=== PATIENT | male | born 1930 | race Caucasian/White ===

== ENCOUNTER → 2018-03-21 | Outpatient (CLI) | payer MEDICARE ==
--- NOTE | 2018-03-21 17:17 | Diagnostic Imaging Report ---
PROCEDURE: Frontal and lateral views of the chest. COMPARISON: Patients [facility], DX, CHEST 2 VIEWS - [facility]MI[facility], 01/05/2016, 12:18. INDICATIONS: CHEST PRESSURE FOR A WEEK FINDINGS: Lines/tubes: None. Lungs: The lungs are well inflated. Minimal bibasilar atelectatic changes, left greater than right.. There is no evidence of consolidation or overt pulmonary edema. Pleura: Small left pleural effusion. Heart and mediastinum: Enlarged cardiac silhouette, with mild central pulmonary venous congestion. Atherosclerotic calcification of the aorta. Bones: No acute bony abnormality. Degenerative changes in the thoracic spine. Midline sternotomy wires. IMPRESSION: 1. enlarged cardiac silhouette with mild central pulmonary venous congestion and small left pleural effusion. No consolidation. Rd Robles M.D. Dictated by: Rd Robles M.D. on 03/21/2018 at 17:22 Electronically approved by: Rd Robles M.D. on 03/21/2018 at 17:22
== END ==
LOC: RAD 15:54
PROVIDERS: ATTEND Family Medicine
DX: R05 Cough (principal)
CPT/HCPCS: 71046

== ENCOUNTER → 2018-10-03 | Outpatient (CLI) | payer MEDICARE ==
[~2018-10-03] MED LIST: ALLOPURINOL100 MG PO; ASPIRIN EC81 MG PO; ATORVASTATIN CA20 MG PO; COUMADIN3 MG PO; DOXYCYCLINE HY100 M3 PO; FINASTERIDE5 MG PO; FUROSEMIDE80 MG PO; LEVOTHYROXINE88 MCG PO; LOPRESSOR25 MG; LOPRESSOR25 MG PO; LYRICA50 MG; LYRICA50 MG PO; METOLAZONE2.5 MG PO; POTASSIUM CHLO10 ME1 PO; POTASSIUM CHLO20 ME1 PO; TAMSULOSIN HCL0.4 MG PO; TYLENOL EXTRA500 MG PO; ULTRAM 50MG50 MG PO; VIRTUSSIN PO; VITAMIN D31000 UNIT PO; WARFARIN SODIUM6 MG PO
--- NOTE | 2018-10-03 17:13 | Diagnostic Imaging Report ---
EXAMINATION: CHEST 2 VIEWS INDICATION: Cough. Shortness of breath. ^COUGH COMPARISON: None FINDINGS: TUBES and LINES: None. Sternal wires. LUNGS: Lungs are well inflated. Perihilar peribronchial hazy opacity could be due to bronchitis. There is no evidence of pneumonia or pulmonary edema. PLEURA: There may be small pleural effusions. HEART AND MEDIASTINUM: Cardiomegaly with pulmonary vascular congestion BONES AND SOFT TISSUES: No acute osseous lesion. Soft tissues are unremarkable. UPPER ABDOMEN: No free air under the diaphragm. IMPRESSION: Cardiomegaly with pulmonary vascular congestion. There may be small pleural effusions. Perihilar peribronchial hazy opacity could be due to bronchitis. Signed by: Dr. Leonard Motley M.D. on 10/03/2018 5:10 PM
== END ==
LOC: RAD 16:38
PROVIDERS: ATTEND Internal Medicine
DX: R05 Cough (principal)
CPT/HCPCS: 71046

== ENCOUNTER 2018-10-04 14:10 | Inpatient (IN) | payer MEDICARE ==
[~2018-10-04] VITALS: Ht 172.7 cm; Wt 109.9 kg
--- OUTSIDE RECORDS SUMMARY | 2018-10-04 14:13 | XMS REPORT ---
Author [facility] Address Unknown Phone Unavailable Care Team Providers Care Information Assurance Name Role Phone RONY DAVID Unavailable Unavailable HAMID, BASEM Unavailable Unavailable HENDRICKSON, ERIK Unavailable Unavailable Goen, Erik Unavailable Unavailable Problems This patient has no known problems. Allergies, Adverse Reactions, Alerts This patient has no known allergies or adverse reactions. Medications This patient has no known medications. Results Test Description Test Time Test Comments Text Results Atomic Results Result Comments CHEST 2 VIEWS 2018-10-03 17:08:00 [place] [address] Patient Name: NOEL VIDES MR #: [id number] : 1930 Age/Sex: 88/M Req #: [id number] Adm Physician: Ordered by: RONY DAVID MD Report #: [id number] Location: [facility] Room/Bed: Procedure: [id number] DX/CHEST 2 VIEWS Exam Date: Exam Time: REPORT STATUS: Signed EXAMINATION: CHEST 2 VIEWS INDICATION: Cough. Shortness of breath. COUGH COMPARISON: None FINDINGS: TUBES and LINES: None. Sternal wires. LUNGS: Lungs are well inflated. Perihilar peribronchial hazy opacity could be due to bronchitis. There is no evidence of pneumonia or pulmonary edema. PLEURA: There may be small pleural effusions. HEART AND MEDIASTINUM: Cardiomegaly with pulmonary vascular congestion BONES AND SOFT TISSUES: No acute osseous lesion. Soft tissues are unremarkable. UPPER ABDOMEN: No free air under the diaphragm. IMPRESSION: Cardiomegaly with pulmonary vascular congestion. There may be small pleural effusions. Perihilar peribronchial hazy opacity could be due to bronchitis. Signed by: Dr. Jose Guadalupe Motley M.D. on 10/03/2018 5:10 PM Dictated By: JOSE GUADALUPE MOTLEY MD, MD 09 Transcribed By: REGINE on 10/03/181709 COPY TO: RONY DAVID MD FOOT LEFT COMPLETE 2018-05-08 15:16:00 [place] [address] Patient Name: NOEL VIDES MR #: [id number] : 1930 Age/Sex: 87/M Req #: [id number] Adm Physician: Ordered by: EDDIE CHOPRA M.D. Report #: [id number] Location: [facility] Room/Bed: Procedure: [id number] DX/FOOT LEFT COMPLETE Exam Date: 05/07/18 Exam Time: 1010 REPORT STATUS: Signed PROCEDURE: X-RAY LEFT FOOT, COMPLETE COMPARISON: None. INDICATIONS: ANKLE/FOOT JOINT PAIN FINDINGS: No acute, displaced fracture or dislocation. Appropriate interval between the medial cuneiform and second metatarsal base in keeping with an intact Lisfranc ligament. Bones of the midfoot are suboptimally evaluated. Joint spaces are show scattered foci of narrowing in osteophytosis along the tarsometatarsal joints. Calcaneal spur. Atherosclerotic vascular calcifications. CONCLUSION: No acute osseous abnormalities. Scattered degenerative changes throughout the midfoot. Dictated by: Cyndi Herrera M.D. on 05/08/2018 at 15:16 Electronically approved by: Cyndi Herrera M.D. on 05/08/2018 at 15:16 Dictated By: CYNDI HERRERA MD 15 Transcribed By: LAW on 05/08/181515 COPY TO: EDDIE CHOPRA ANKLE 3+ VIEWS LEFT 2018-05-08 15:15:00 [place] [address] Patient Name: NOEL VIDES MR #: [id number] : 1930 Age/Sex: 87/M Req #: [id number] Adm Physician: Ordered by: EDDIE CHOPRA M.D. Report #: [id number] Location: [facility] Room/Bed: Procedure: [id number] DX/ANKLE 3+ VIEWS LEFT Exam Date: 05/07/18 Exam Time: 1010 REPORT STATUS: Signed PROCEDURE: ANKLE 3+ VIEWS LEFT INDICATION: Joint pain COMPARISON: None. FINDINGS: No acute, displaced fracture or dislocation. Tibial plafond and talar dome are intact. Ankle mortise is maintained. Atherosclerotic vascular calcifications. Degenerative plantar and posterior calcaneal spur. CONCLUSION: No acute osseous abnormality. Degenerative plantar and posterior calcaneal spur. Dictated by: Cyndi Herrera M.D. on 05/08/2018 at 15:14 Electronically approved by: Cyndi Herrera M.D. on 05/08/2018 at 15:14 Dictated By: CYNDI HERRERA MD 14 Transcribed By: LAW on 05/08/181514 COPY TO: EDDIE CHOPRA SP LUMBAR, COMPLETE MIN 4VW 2018-05-07 11:36:00 [place] [address] Patient Name: NOEL VIDES MR #: [id number] : 1930 Age/Sex: 87/M Req #: [id number] Adm Physician: Ordered by: EDDIE CHOPRA M.D. Report #: [id number] Location: [facility] Room/Bed: Procedure: [id number] DX/SP LUMBAR, COMPLETE MIN 4VW Exam Date: 05/07/18 Exam Time: 1010 REPORT STATUS: Signed PROCEDURE: L-SPINE COMPLETE COMPARISON: None. INDICATIONS: LOW BACK PAIN FINDINGS: There are five lumbar-type vertebral bodies. The vertebral bodies are well-aligned without evidence of spondylolisthesis. Vertebral body heights are maintained. Multilevel degenerative disc and facet degenerative changes, most pronounced at L4-L5 and L5-S1 where there are moderate in severity. There is likely bony neural foraminal stenoses at these levels. Atherosclerotic vascular calcifications. Partially seen right hip arthroplasty. CONCLUSION: No acute osseous abnormality. Moderate degenerative changes in the lower lumbar spine as above. Dictated by: RACHEAL LITTLEJOHN M.D. on 05/07/2018 at 11:35 Electronically approved by: RACHEAL LITTLEJOHN M.D. on 05/07/2018 at 11:35 Dictated By: RACHEAL LITTLEJOHN MD 1136 Transcribed By: LAW on 05/07/18 1136 COPY TO: EDDIE CHOPRA CHEST 2 VIEWS 2018-03-21 17:22:00 [place] [address] Patient Name: NOEL VIDES MR #: [id number] : 1930 Age/Sex: 87/M Req #: [id number] [facility] Physician: Ordered by: ERIK HENDRICKSON MD Report #: [id number] Location: [facility] Room/Bed: Procedure: [id number] DX/CHEST 2 VIEWS Exam Date: 03/21/18 Exam Time: 1630 REPORT STATUS: Signed PROCEDURE: Frontal and lateral views of the chest. COMPARISON: [facility], DX, CHEST 2 VIEWS - [facility]ORI[facility], 01/05/2016, 12:18. INDICATIONS: CHEST PRESSURE FOR A WEEK FINDINGS: Lines/tubes: None. Lungs: The lungs are well inflated. Minimal bibasilar atelectatic changes, left greater than right.. There is no evidence of consolidation or overt pulmonary edema. Pleura: Small left pleural effusion. Heart and mediastinum: Enlarged cardiac silhouette, with mild central pulmonary venous congestion. Atherosclerotic calcification of the aorta. Bones: No acute bony abnormality. Degenerative changes in the thoracic spine. Midline sternotomy wires. IMPRESSION: 1. enlarged cardiac silhouette with mild central pulmonary venous congestion and small left pleural effusion. No consolidation. Ehsan Robles M.D. Dictated by: Ehsan Robles M.D. on 03/21/2018 at 17:22 Electronically approved by: Ehsan Robles M.D. on 03/21/2018 at 17:22 Dictated By: EHSAN ROBLES MD 21 Transcribed By: LAW on 03/21/181721 COPY TO: ERIK HENDRICKSON MD Chemistry 2017-04-20 21:52:00 Chemistry (test code=NA-T) 140 mmol/L 136-145 Chemistry (test code=K-T) 4.0 mmol/L 3.5-5.1 Chemistry (test code=CL) 102 mmol/L 98-107 Chemistry (test code=CO2) 24 mmol/L 23-31 Chemistry (test code=ANGP) 18 mmol/L 10-20 Chemistry (test code=BUN) 16 mg/dL 8.4-25.7 Chemistry (test code=CREATT) 1.12 mg/dL 0.6-1.3 Chemistry (test code=EGFRMDRD) 62 Reference Range for Estimated GFR: Greater than 90 mL/min/1.73 m2NOTE:The MDRD equation has not been validated for use with theelderly (over 70 years of age), women, patien tswith serious comorbid condition or persons with extremes ofbody size, muscle mass, or nutritional status. Chemistry (test code=GLU-T) 174 mg/dL 83-110 Chemistry (test code=CA) 8.5 mg/dL 7.8-10.44 Chemistry (test code=TBILI) 1.7 mg/dL 0.2-1.2 Chemistry (test code=TP) 7.0 g/dL 5.8-8.1 Chemistry (test code=ALB) 3.5 g/dL 3.4-4.8 Chemistry (test code=GLOB) 3.5 g/dL 2.4-3.5 Chemistry (test code=AG) 1.0 g/dL 1.2-2.2 Chemistry (test code=ALP) 97 U/L 40-150 Chemistry (test code=AST) 30 U/L 5-34 Chemistry (test code=ALT) 17 U/L 8-55 [id number] 21:22:00* Test Item Value Reference Range Comments Coagulation (test code=PT-T) 17.0 SEC 12.0-14.7 Coagulation (test code=INR) 1.4 ATTENTION: READ CAREFULLY The recommended therapeutic ranges for oral anticoagulanttreatments are: Low Intensity: 1.5 - 2.0 Moderate Intensity: 2.0 - 3.0 High Intensity (1): 2.5 - 3.5 High Intensity (2): 3.0 - 4.0 CRITICAL: > 4.0 Anticoagulant? WARFARIN (COUMADIN)Medical Necessity SUSPECT COAGULOPATHYAnticoag ulant? WARFARIN (COUMADIN)Medical Necessity: SUSP [id number] 21:22:00* Test Item Value Reference Range Comments Coagulation (test code=PTT) 42.0 SEC 22.9-36.1 Anticoagulant? WARFARIN (COUMADIN)Medical Necessity SUSPECT COAGULOPATHYAnticoag ulant? WARFARIN (COUMADIN)Medical Necessity: SUSP [id number] 21:12:00* Test Item Value Reference Range Comments Hematology (test code=WBCT) 5.9 thou/uL 4.8-10.8 Hematology (test code=RBCT) 3.49 mill/uL 4.70-6.10 Hematology (test code=HGBT) 10.9 g/dL 14.0-18.0 Hematology (test code=HCTT) 34.0 % 42.0-52.0 Hematology (test code=MCV) 97.3 fl 80.0-94.0 Hematology (test code=MCH) 31.1 pg 27.0-31.0 Hematology (test code=MCHC) 32.0 g/dL 32.0-36.0 Hematology (test code=RDW) 15.3 % 11.5-14.5 Hematology (test code=PLTT) 145 thou/uL 130-400 Hematology (test code=MPV) 8.8 fL 7.4-10.4 Hematology (test code=%NEUT) 71.1 % 42.0-75.0 Hematology (test code=%LYMPH) 16.6 % 21.0-51.0 Hematology (test code=%MONO) 9.2 % 0.0-10.0 Hematology (test code=%EOS) 2.5 % 0.0-10.0 Hematology (test code=%BASO) 0.6 % 0.0-1.0 Hematology (test code=NEUT#) 4.2 thou/uL 1.40-6.50 Hematology (test code=LYMPH#) 1.0 thou/uL 1.20-3.40 Hematology (test code=MONO#) 0.5 thou/uL 0.11-0.59 Hematology (test code=EOS#) 0.1 thou/uL 0.0-0.7 Hematology (test code=BASO#) 0.0 thou/uL 0.0-0.2
--- OUTSIDE RECORDS SUMMARY | 2018-10-04 14:13 | XMS REPORT | Summary of Care ---
Author Author [facility] Address Unknown Phone Unavailable Encounter [facility] Rigor_tatiana(NINA) [id number] Date(s): 07/19/16 - 08/17/16 [facility] Discharge Disposition: Home or Self Care Attending Physician: Kevin Jauregui MD Vital Signs No data available for this section Problem List No data available for this section Allergies, Adverse Reactions, Alerts Substance Reaction Severity Status NKA Active NKDA Active Medications No data available for this section Results No data available for this section Immunizations No data available for this section Procedures No data available for this section Social History No data available for this section Assessment and Plan No data available for this section
--- OUTSIDE RECORDS SUMMARY | 2018-10-04 14:13 | XMS REPORT | Continuity of Care Document ---
Author Author [facility] Interface Address Unknown Phone Unavailable Problems Problem Status Onset Date Classification Date Reported Comments Source LEFT KNEE JOINT REPLACEMENT Active [facility] UNILATERAL PRIMARY OSTEOARTHRITIS, LEFT Active [facility] PAIN IN LEFT KNEE Active [facility] STIFFNESS OF LEFT KNEE, NOT ELSEWHERE CL Active [facility] Medications Medication Details Route Status Patient Instructions Ordering Provider Order Date Source Allergies, Adverse Reactions, Alerts Substance Category Reaction Severity Reaction type Status Date Reported Comments Source NKA Assertion Drug allergy Active [facility] Immunizations Immunization Date Given Site Status Last Updated Comments Source Results Order Name Results Value Reference Range Date Interpretation Comments Source Vital Signs Vital Sign Value Date Comments Source Encounters Location Location Details Encounter Type Encounter Number Reason For Visit Attending Provider ADM Date DC Date Status Source [facility] OP Therapy Patients [id number] Kevin Jauregui 07/19/2016 08/18/2016 [facility] Procedures Procedure Code Date Perfomer Comments Source
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
[2018-10-04] MEDS ORDERED: FUROSEMIDE INJ 10 MG/ML 2 ML VIAL IV PRN (14:45)
[2018-10-04] MEDS ORDERED: SODIUM CHLORIDE 0.9% 250ML 250 ML IV ONE ×2 (14:45→16:45)
[2018-10-04] MEDS ORDERED: PANTOPRAZOLE 40 MG 10ML VIAL IV ONE (15:00)
[2018-10-04 15:39] LABS: BASOPHILS % 0.5 % (0.0-1.0); EOSINOPHILS # (AUTO) 0.1 (0.0-0.4); EOSINOPHILS % 1.1 % (0.0-6.0); LYMPHOCYTES # (AUTO) 0.7 (1.0-3.2); LYMPHOCYTES % 10.2 % (18.0-39.1); MEAN CORPUSCULAR HEMOGLOBIN 24.6 pg (28-32); MEAN CORPUSCULAR HGB CONC 29.9 g/dL (31-35); MEAN CORPUSCULAR VOLUME 82.2 fL (81-99); MONOCYTES # (AUTO) 0.6 (0.2-0.8); MONOCYTES % 9.3 % (4.4-11.3); NEUTROPHILS % 78.4 % (38.7-80.0); PLATELET COUNT 201 x10e3/uL (140-360); RED BLOOD COUNT 2.36 x10e6/uL (4.3-5.7); RED CELL DISTRIBUTION WIDTH 19.1 % (11.7-14.4)
[2018-10-04 15:42] LABS: HEMOGLOBIN 5.8 g/dL (14.0-18.0)
[2018-10-04 15:43] LABS: HEMATOCRIT 19.4 % (38.2-49.6)
--- NOTE | 2018-10-04 15:51 | Diagnostic Imaging Report ---
EXAM: CT Chest WITHOUT contrast 10/04/2018 2:44 PM INDICATION: Anemia. Abnormal chest x-ray. COMPARISON: Chest radiograph October 03, 2018 TECHNIQUE: Chest was scanned utilizing a multidetector helical scanner from the lung apex through the level of the adrenal glands without administration of IV contrast. Absence of intravenous contrast decreases sensitivity for detection of lymphadenopathy and vascular pathology. Coronal and sagittal reformations were obtained. Routine protocol was performed. IV CONTRAST: None RADIATION DOSE: Total DLP: 557.7 mGy*cm Estimated effective dose: (DLP x 0.014 x size factor) mSv All CT scans are performed using radiation dose reduction techniques. Technical factors are evaluated and adjusted to ensure appropriate moderation of exposure. Automated dose management technology is applied to adjust the radiation dose to minimize exposure while achieving a diagnostic-quality image. COMPLICATIONS: None FINDINGS: LINES/ TUBES: None. LUNGS AND AIRWAYS: Mild chronic appearing changes in the lungs with regions of scarring/atelectasis most pronounced in the lower lobes. No consolidated pneumonia. Airways are normal. PLEURA: The pleural spaces are clear. HEART AND MEDIASTINUM: The thyroid gland is normal. No mediastinal, hilar or axillary lymphadenopathy. Cardiomegaly with pulmonary trunk measuring 3.6 cm likely due to pulmonary hypertension.. There is no pericardial effusion. Scattered atherosclerotic calcification in the coronary arteries, aorta and branch vessels. Postsurgical change to the heart with sternal wires. UPPER ABDOMEN: Lobular contour of the liver could be due to cirrhosis. BONES: The visualized bony thorax is within normal limits. SOFT TISSUES: Unremarkable. IMPRESSION: Cardiomegaly with dilated pulmonary trunk likely due to pulmonary hypertension. Mild chronic appearing changes in the lungs with regions of scarring/atelectasis most pronounced in the lower lobes. No pleural effusion is seen. Signed by: Dr. Leonard Motley M.D. on 10/04/2018 3:47 PM
[2018-10-04 15:53] LABS: INR 2.54; PARTIAL THROMBOPLASTIN TIME 45.5 seconds (23.8-35.5); PROTHROMBIN TIME 29.2 seconds (11.9-14.5)
[2018-10-04 16:03] LABS: ALBUMIN 3.1 g/dL (3.5-5.0); ALBUMIN/GLOBULIN RATIO 0.9 (0.8-2.0); ANION GAP 15.1 mmol/L (8-16); CALCIUM 8.5 mg/dL (8.4-10.2); CREATININE, SERUM 1.52 mg/dL (0.72-1.25); MAGNESIUM 2.1 MG/DL (1.3-2.1); POTASSIUM 3.1 mmol/L (3.5-5.1)
[2018-10-04 16:11] LABS: CREATINE KINASE MB 3.4 ng/mL (0-5.0)
[2018-10-04] MEDS: PANTOPRAZOLE 40 MG 10ML VIAL IV SCH (16:27)
[2018-10-04] MEDS ORDERED: POTASSIUM CHLORIDE 20MEQ/15ML UDC PO ONE (16:30)
[2018-10-04] MEDS ORDERED: TYLENOL EXTRA500 MG PO (17:11)
[2018-10-04] MEDS ORDERED: FINASTERIDE5 MG PO (17:11)
[2018-10-04] MEDS ORDERED: ULTRAM 50MG50 MG PO (17:11)
[2018-10-04] MEDS ORDERED: ATORVASTATIN CA20 MG PO (17:11)
[2018-10-04] MEDS ORDERED: FUROSEMIDE80 MG PO (17:11)
[2018-10-04] MEDS ORDERED: ALLOPURINOL100 MG PO (17:11)
[2018-10-04] MEDS ORDERED: VITAMIN D31000 UNIT PO (17:11)
[2018-10-04] MEDS ORDERED: WARFARIN SODIUM6 MG PO (17:11)
[2018-10-04] MEDS ORDERED: LYRICA50 MG ×2 (17:11→19:39)
[2018-10-04] MEDS ORDERED: TAMSULOSIN HCL0.4 MG PO (17:11)
[2018-10-04] MEDS ORDERED: LEVOTHYROXINE88 MCG PO (17:11)
[2018-10-04] MEDS ORDERED: LOPRESSOR25 MG (17:11)
[2018-10-04] MEDS ORDERED: VIRTUSSIN PO (17:11)
[2018-10-04] MEDS ORDERED: DOXYCYCLINE HY100 M3 PO (17:11)
[2018-10-04] MEDS ORDERED: METOLAZONE2.5 MG PO (17:11)
[2018-10-04] MEDS ORDERED: ASPIRIN EC81 MG PO (17:11)
[2018-10-04] MEDS ORDERED: POTASSIUM CHLO20 ME1 PO (17:11)
--- OUTSIDE RECORDS SUMMARY | 2018-10-04 17:18 | XMS REPORT | Clinical Summary ---
Author Author [facility] Organization [facility] Address Unknown Phone Unavailable Care Team Providers Care Loading Machine Operator Name Role Phone Hawk Benitez MD PCP [...] MD 09/26/2018 Abstract Orthopedic Surgery Luly Rolle, [place] Anticoagulation 09/23/2018 Telephone Cardiology Lucie Mckinnon MA ANTICOAGULATION 09/19/2018 Telephone Cardiology Kendy Vera MD Med Refill 09/18/2018 Refill Cardiology Luly Rolle, [place] Anticoagulation 09/04/2018 Telephone Cardiology Luly Rolle, [place] Anticoagulation 08/28/2018 Telephone Cardiology Thiago Aaron MD Acute pain of left knee 08/16/2018 Hospital Procedural Cardiology Encounter Luly Rolle, [place] Anticoagulation 08/14/2018 Telephone Cardiology Thiago Aaron MD 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); Acute pain of left knee 08/08/2018 Office Visit Orthopedic Surgery Luly Rolle, [place] Anticoagulation 08/07/2018 Telephone Cardiology Kendy Vera MD 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 (Primary Dx); Chronic atrial fibrillation (HCC); Acute on chronic diastolic heart failure (HCC); Moderate mitral regurgitation; Aortic valve disorder; Hypercholesterolemia; Edema of lower extremity; H/O mechanical aortic valve replacement 08/06/2018 Office Visit Cardiology Yuliya Rice Left knee pain, unspecified chronicity (Primary Dx) 08/02/2018 Orders Only Orthopedic Surgery Harmony Martinez MA 07/31/2018 Orders Only Orthopedic Surgery Rolle, Luly, [place] Anticoagulation 07/31/2018 Telephone Cardiology Kendy Vera MD Med Refill 07/21/2018 Refill Cardiology Rolle, Luly, [place] Anticoagulation 07/05/2018 Telephone Cardiology Thiago Aaron MD 07/04/2018 Abstract Orthopedic Surgery Kendy Vera MD Atrial fibrillation, unspecified type (HCC) (Primary Dx); SOB (shortness of breath); Diastolic congestive heart failure, unspecified HF chronicity (HCC); Acute on chronic diastolic heart failure (HCC); H/O mechanical aortic valve replacement; 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; Aortic valve disorder; [...] MD 06/12/2018 Abstract Orthopedic Surgery Aquilino, Luly, [place] Anticoagulation 05/30/2018 Telephone Cardiology Harmony Martinez MA 05/27/2018 Orders Only Orthopedic Surgery Rolle, Luly, [place] Anticoagulation 05/01/2018 Telephone Cardiology Kendy Vera MD Med Refill 04/12/2018 Refill Cardiology Rolle, Luly, [place] Anticoagulation 04/11/2018 Telephone Cardiology Rolle, Luly, [place] Anticoagulation 03/27/2018 Telephone Cardiology Rolle, Luly, [place] Anticoagulation 03/19/2018 Telephone Cardiology Rolle, Luly, [place] Anticoagulation 03/12/2018 Telephone Cardiology Rolle, Luly, [place] Anticoagulation 03/07/2018 Telephone Cardiology Rolle, Luly, [place] Anticoagulation 03/06/2018 Telephone Cardiology George, Zack M., MD 02/20/2018 Telephone Gastroenterology Luly Rolle, [place] Anticoagulation 02/19/2018 Telephone Cardiology Larissa Heredia RN [...] 02/05/2018 Orders Only Orthopedic Surgery Luly Rolle, [place] Anticoagulation 02/05/2018 Telephone Cardiology Jesi Hernandez MA Result - Labs 01/31/2018 Telephone Cardiology Kendy Vera MD Atrial fibrillation, unspecified type (Primary Dx); Diastolic heart failure, unspecified heart failure chronicity; 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.] 12/17/2017 Orders Only Orthopedic Surgery RolleLuly egan, [place] Anticoagulation 12/04/2017 Telephone Cardiology Luly Rolle, [place] Anticoagulation 11/22/2017 Telephone Cardiology Lucie Mckninon MA ANTICOAGULATION 11/15/2017 Telephone Cardiology Harmony Martinez MA 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) 11/09/2017 Orders Only Orthopedic Surgery RolleCarmen eganerine, [place] Anticoagulation 11/05/2017 Telephone Cardiology Luly Rolle, [place] Anticoagulation 10/18/2017 Telephone Cardiology RolleLuly egan, [place] Anticoagulation 10/03/2017 Telephone Cardiology after 10/03/2017 Family [...] Taken Vital Sign Reading 08/06/2018 8:39 AM MANAGER HUMAN RESOURCES Blood Pressure 141/61 08/06/2018 8:39 AM MANAGER HUMAN RESOURCES Pulse 49 12/24/2017 9:39 AM CDT Temperature 35.7 C (96.2 F) 08/06/2018 8:39 AM MANAGER HUMAN RESOURCES Respiratory Rate 16 06/25/2018 2:25 PM CDT Oxygen Saturation 97% - Inhaled Oxygen - Concentration 08/08/2018 9:18 AM MANAGER HUMAN RESOURCES Weight 107 kg (235 lb) 08/08/2018 9:18 AM MANAGER HUMAN RESOURCES Height 172.7 cm (5' 8") 08/08/2018 9:18 AM MANAGER HUMAN RESOURCES Body Mass Index 35.73 Plan of Treatment Care Team Description Date [facility] [address] [address] 02/04/2019 Office Visit Cardiology Health Maintenance Due Date Last Done Comments SHINGLES VACCINES (1 of 1981 2) PNEUMOCOCCAL 1996 POLYSACCHARIDE VACCINE AGE 65 AND OVER PNEUMOCOCCAL-13 1996 INFLUENZA VACCINE 03/27/2018 Implants Device Identifier Shelf Expiration Date Model / Serial / Lot Implanted Type Area Manufactur er 09/26/2021 62 [id number] / / [id number] Srom Nrhfem W/Pin Xsmlft 66x58 - IPM Left: Knee DEPUY [id number] IMPLANT ORTHOPAEDI Implanted: Qty: 1 on 08/14/2017 by DEVICES KENNEDY MENDOZA Stephen J., MD 03/26/2022 [id number] / / [id number] Lps Tibial Insert Hinge [place] IPM Left: Knee DEPUY Xsmall 12mm - [id number] IMPLANT ORTHOPAEDI Implanted: Qty: 1 on 08/14/2017 by DEVICES KENNEDY MENDOZA Stephen J., MD 06/26/2027 [id number] / / [place] Fem Slv Ful Por 31mm - IPM DEPUY [id number] IMPLANT ORTHOPAEDI Implanted: Qty: 1 on 08/14/2017 by DEVICES KENNEDY MENDOZA Stephen J., MD 09/26/2019 [id number] / / [id number] Cement Bone R+G 1dose Palacos - Knee Joint Left: Knee DANY INC [id number] Implants Implanted: Qty: 2 on 05/09/2016 by Kendy Jauregui MD 02/12/2021 [id number] / / [id number] Implant Ptlr Vanguard 3 Peg Series Knee Joint Left: Knee BIOMET INC A Std 34x8.5mm - [id number] Implants Implanted: 05/09/2016 (Quantity not on file) 02/06/2026 [id number] / / [id number] Tray Tib Prim Interlok 75mm Ascent Knee Joint Left: Knee BIOMET INC Maxim - [id number] Implants Implanted: 05/09/2016 (Quantity not on file) 02/01/2026 [id number] / / [id number] Stem Tib Prim Finned [id number] Ascent Knee Joint Left: Knee BIOMET INC Maxim - [id number] Implants Implanted: 05/09/2016 (Quantity not on file) 01/04/2026 [id number] / / [id number] Component Fml Cr Lt Anatom Interlok Knee Joint Left: Knee BIOMET INC 67.5mm Vanguard - [id number] Implants Implanted: 05/09/2016 (Quantity not on file) 06/26/2027 [id number] / / [id number] Sleeve Tray Mbt 29mm Porocoat - Knee Joint Left: Knee DEPUY [id number] Implants ORTHO-KNEE Implanted: Qty: 1 on 08/14/2017 by Thiago Michelle MD 12/24/2026 [id number] / / [id number] Tray Rev Mbt 2x4.8mm - [id number] Knee Joint Left: Knee DEPUY Implanted: Qty: 1 on 08/14/2017 by Implants ORTHO-KNEE Thiago Aaron MD S 02/23/2021 [id number] / / [id number] Cement Bone R+G 1dose Palacos - Knee Joint Left: Knee DANY INC [id number] Implants Implanted: Qty: 1 on 08/14/2017 by Thiago Aaron MD 02/23/2021 [id number] / / [id number] Cement Bone R+G 1dose Palacos - Knee Joint Left: Knee DANY INC [id number] Implants Implanted: Qty: 1 on 08/14/2017 by Thiago Aaron MD 01/24/2027 [id number] / / [id number] Stem Knee Flt Univl [id number] - Knee Joint Left: Knee DEPUY [id number] Implants ORTHO-KNEE Implanted: Qty: 1 on 08/14/2017 by Thiago Michelle MD 09/26/2025 [id number] / / [id number] Stem Knee Flt Univl [id number] - Knee Joint Left: Knee DEPUY [id number] Implants ORTHO-KNEE Implanted: Qty: 1 on 08/14/2017 by Thiago Michelle MD 06/26/2027 [id number] / / [id number] Sleeve Fml Fully-Porous Univl 31mm Knee Joint Left: Knee DEPUY - [id number] Implants ORTHO Implanted: 08/15/2017 (Quantity not on file) 08/26/2018 [id number] / / [id number] Cement Bone Full-Dose Premxd W/ Surgical Left: Knee LILILE Tobr Simplex P Pack 10/Ea - Bone ORTHOPEDIC [id number] Cement S Implanted: Qty: 3 on 06/05/2017 by HIPS-KNEES Thiago Aaron MD 08/26/2018 [id number] / / [id number] Cement Bone Full-Dose Premxd W/ Surgical Left: Knee LILLIE Tobr Simplex P Pack 10/Ea - Bone ORTHOPEDIC [id number] Cement S Implanted: Qty: 1 on 06/05/2017 by HIPS-KNEES Thiago Aaron MD [id number] / / Immobilizer Knee Countoured Foam Lg Surgical N/A: N/A DEROYAL Cnvs 24in - [id number] Implants; INDUSTRIES Implanted: Qty: 1 on 06/05/2017 by Expanders; Thiago Aaron MD Extenders; Surgical Wires [id number] / / Particle Hmstc Absrbl Melissa 5gm Surgical N/A: N/A MEDAFOR Mph - [id number] Implants; Implanted: 06/07/2017 (Quantity not Expanders; on file) Extenders; Surgical Wires [id number] / / Immobilizer Knee Tripnl Dlx W/ Patl Surgical N/A: N/A DEROYAL Strp Univl Canvas 24in - [id number] Implants; INDUSTRIES Implanted: 08/14/2017 (Quantity not Expanders; on file) Extenders; Surgical Wires 03/23/2022 [id number] / / [id number] Mesh Hrnia Rpr 10t74pb Flat Shet Surgical Left: Knee DAVOL INC Ppe Soft-Tissue Ventrl - [id number] Mesh or Implanted: Qty: 1 on 08/14/2017 by Tissue Thiago Aaron MD [employer] Procedures Comments Procedure Name Priority Date/Time Associated Diagnosis PROTHROMBIN TIME WITH INR Routine 09/23/2018 PROTHROMBIN TIME WITH INR Routine 09/19/2018 PROTHROMBIN TIME WITH INR Routine 09/04/2018 PROTHROMBIN TIME WITH INR Routine 08/28/2018 US DUPLEX VENOUS LOWER Routine 08/16/2018 Acute pain of left knee EXTREMITY LEFT 9:15 AM MANAGER HUMAN RESOURCES PROTHROMBIN TIME WITH INR Routine 08/14/2018 XR KNEE 3 VW LEFT Routine 08/08/2018 Left knee pain, 9:27 AM MANAGER HUMAN RESOURCES unspecified chronicity PROTHROMBIN TIME WITH INR Routine 08/07/2018 PROTHROMBIN TIME WITH INR Routine 07/31/2018 PROTHROMBIN TIME WITH INR Routine 07/05/2018 ECHOCARDIOGRAM 2D Routine 06/25/2018 Diastolic congestive COMPLETE W MMODE SPECTRAL 3:12 PM CDT heart failure, COLOR DOPPLER ([id number]) unspecified HF chronicity (HCC) POC PT/INR Routine [...] Coronary artery disease 9:27 AM CDT involving takotna coronary artery of takotna heart without angina pectoris HEMOGLOBIN A1C Routine 01/22/2018 Coronary artery disease 9:27 AM CDT involving takotna coronary artery of takotna heart without angina pectoris BASIC METABOLIC PANEL Routine 01/22/2018 Diastolic heart failure, 9:27 AM CDT unspecified heart failure chronicity TSH+FREE T4 Routine 01/22/2018 Coronary artery disease 9:27 AM CDT involving takotna coronary artery of takotna heart without angina pectoris ECG 12-LEAD Routine [...] 2.50 [facility] Specimen Blood Performing Organization Address [facility] [[email or web address] Phone Number [facility] * Us duplex venous lower extremity (08/16/2018 9:15 AM MANAGER HUMAN RESOURCES) Narrative Performed At [facility] The right middle femoral vein is compressible with normal augmentation. Flow is spontaneous and pulsatile. No evidence of DVT in the right lower extremity. Performing Organization Address [facility] [[email or web address] Phone Number [facility] [address] [place] [address] * XR Knee 3 Vw Left (08/08/2018 9:27 AM MANAGER HUMAN RESOURCES) Only the most recent of 3 results within the time period is included. Narrative Performed At [facility] X-rays show well-positioned revision knee arthroplasty.On the skyline view the patella is dislocated laterally. 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 Performing Organization Address [facility] Phone Number [facility] [address] [place] [address] * Echocardiogram complete w contrast and 3D if needed (06/25/2018 3:12 PM CDT) Narrative Performed At [facility] Echocardiography Report Pat.Name:NOEL VIDES Snehal Pat.ID:[id number] .Date: 06/25/2018Refer.MD:KENDY VERA MD Exam Time: 2:21:00 PMStudy Type:Routine Echo Height:68inWeight:225lb BSA: 2.15 m2 DOBAge:1930,87Y Sex: MALEBP:180/81 HR:63 bpmSonogrphr: Cornel Peterson RDCS Pat. Stat.:OutpatientRoom:[facility] Study Status:Final Echo Event ID:[id number] Order ID:[id number] Reason for Study:Diastolic congestive heart failure, unspecified [...] of 10-15 mmHg. MEASUREMENTS: 2D Parasternal Long [place] LVOT 2.1 cmLVPWd1.3 cm LVIDd4.7 cmIndex2.2 cm/m LA Ds4.8 cm LVIDs3.1 cm LV Hsev919.9 g(122-174) LV%fs 34 % LVM Redgj381.7 g/m2 IVSd 1.3 cmRWT0.6 LA Sng Plane LA Area 34.9 cm2(8.8-23.4) LA Vol 136.3 ml Index63.4 ml/m LA LngAx 7.4 cm LVOT LVOT 2.1 cm EF Biplane ISA591.4 mlEF58 % ESV 77.4 mlHR64 bpm SV 107 mlCO 6.8 l/min DOPPLER AV For Flow/LAVELL AV pkVel 379.8 cm/s (100-170) AV ET324 msec AV mnVel 242.1 cm/Andrea AC/ET 0.3 AV pkPG 57.7 mmHgAV TVI78.5 cm AV Mean G 29.2 mmHgAVpkAcRt 48960.5 cm/s2 AV AC 93 msec (83-118) AV OxQf1052.9 cm/s2 Mitral Valve MV pkE 173.2 cm/s (60-130) TV Pressure Gradient TV PkVel 371.6 cm/sTV PG 55.2 mmHg WALL MOTION: RESTING WALL MOTION: Basal Inferior wall is hypokinetic. Normal in all other bell. Wall Index=1.1 Signed 06/26/2018 10:59 PM Kendy Vera M.D. Procedure Note Interface, Radiology Results In - 06/26/2018 11:00 PM CDT [facility] Echocardiography Report Pat.Name: NOEL VIDES Pat.ID: [id number] St.Date: 06/25/2018 Refer.MD: KENDY VERA MD Exam Time: 2:21:00 PM Study Type:Routine Echo Height: 68in Weight: 225lb BSA: 2.15 m2 Age: 1 1930,87Y Sex: MALE BP: 180/81 HR: 63 bpm Sonogrphr: Cornel Peterson RDCS Pat. Stat.:Outpatient Room: [facility] Study Status:Final Echo Event ID:[id number] Order ID: [id number] Reason for Study:Diastolic congestive heart failure, unspecified [...] of 10-15 mmHg. MEASUREMENTS: 2D Parasternal [place] LVOT 2.1 cm LVPWd 1.3 cm LVIDd [...] cm AV Mean G 29.2 mmHg AVpkAcRt 18525.5 cm/s2 AV AC 93 msec (83-118) AV DeRt 1171.9 cm/s2 Mitral Valve MV pkE 173.2 cm/s (60-130) TV Pressure Gradient TV PkVel 371.6 cm/s TV PG 55.2 mmHg WALL MOTION: RESTING WALL MOTION: Basal Inferior wall is hypokinetic. Normal in all other bell. Wall Index=1.1 Signed 06/26/2018 10:59 PM Kendy Vera M.D. Performing Organization Address [facility]/[employer] Phone Number [facility] [address] [place] [address] * POC PT/INR (06/25/2018 10:28 AM CDT) [...] 87 [facility] MUSE EKG impression Atrial fibrillation-Left [facility] MUSE posterior fascicular block-Nonspecific ST abnormality-Abnormal ECG-In automated comparison with ECG of 22-JAN-2018 09:06,-No significant change was found- Performing Organization Address [facility] [[email or web address].fmid Phone Number [facility] MUSE [address] [place] [address] * Transfuse RBC (05/01/2018 5:46 PM CDT) Only the most recent of 6 results within the time period is included. * TSH+Free T4 (01/22/2018 9:27 AM CDT) TSH 3.660 0.450 - 4.500 uIU/mL [facility] T4, free 1.30 0.82 - 1.77 ng/dL [facility] Specimen Blood Narrative Performed At Performed at: [facility] [address] [place], [place] [id number] New Accounts Clerk: Roshan William MD, Phone:[phone] Performing Organization Address [facility] Phone Number [facility] * Hemoglobin A1c (01/22/2018 9:27 AM CDT) Hemoglobin A1C 6.4 (H) 4.8 - 5.6 % [facility] Comment: Pre-diabetes: 5.7 - 6.4 Diabetes: >6.4 Glycemic control for adults with diabetes: <7.0 Specimen Blood Narrative Performed At Performed at: [facility] [address] [place], [place] [id number] New Accounts Clerk: Roshan William MD, Phone:[phone] Performing Organization Address [facility] Phone Number [facility] * Lipid panel (01/22/2018 [...] Specimen Blood Narrative Performed At Performed at: [id number] New Accounts Clerk: Roshan William MD, Phone:[phone] Performing Organization Address [facility] Phone Number [facility] * Basic metabolic panel [...] Blood Narrative Performed At Performed at: [facility] [address] [place], [id number] New Accounts Clerk: Roshan William MD, Phone:[phone] Performing Organization Address City/State/Zipcode Phone Number [facility] * XR Leg Length Evaluation (12/20/2017 9:26 AM CDT) Narrative Performed At [facility] Long-leg radiographs reveal a complex revision left knee arthroplasty in place. There is excellent alignment. Components appear stable. Performing Organization Address City/[facility]/Zipcode Phone Number [facility] [address] [place] [address] after 10/03/2017 Insurance Payer Benefit Subscriber ID Type Phone Address Plan / Group [facility] MEDICARE [facility] xxxxxxxxx HMO MEDICARE COMPLETE AARP AARP xxxxxxxxx Commercial SUPPLEMENT [facility] Outside Other [phone] Attn: [facility] (Home) [address] [place] [id number] [address] Self 1930 [address] [facility] (Home) [place] [address] Liability Advance Directives Patient has advance care planning documents, and code status on file. For more i nformation, please contact: [facility] [address] [place] [address] Date Inactivated Comments Code Status Date Activated 06/15/2016 5:16 PM Full Code 05/19/2016 9:26 PM Code Status decision reached by: Patient 05/19/2016 9:26 PM Full Code 05/14/2016 6:42 AM Code Status decision reached by: Patient
--- NOTE | 2018-10-04 18:00 | NUR ---
Vitals starting from 1800 see Blood Transfusion Record.
--- NOTE | 2018-10-04 18:30 | NUR ---
Unable to call report. RN is removing a joe. Advised they will call back in 5 minutes to get report.
--- NOTE | 2018-10-04 18:49 | NUR ---
Second report attempt. Nurse is taking report. They will call at their convenience.
[2018-10-04 19:33] LABS: CLARITY,URINE CLEAR (CLEAR); COLOR,URINE YELLOW (YELLOW)
[2018-10-04 19:34] LABS: BILIRUBIN,URINE NEGATIVE (NEGATIVE); KETONES,URINE NEGATIVE (NEGATIVE); LEUKOCYTE ESTERASE ,URINE NEGATIVE (NEGATIVE); NITRITE,URINE NEGATIVE (NEGATIVE); PROTEIN,URINE DIPSTICK NEGATIVE (NEGATIVE); URINE UROBILINOGEN 0.2 mg/dL (0.2 - 1)
[2018-10-04 19:42] LABS: BACTERIA,URINE FEW /HPF; EPITHELIAL CELLS,URINE FEW /LPF; WBC,URINE (MAN) 0-5 /HPF (0-5)
[2018-10-04] MEDS ORDERED: LYRICA50 MG PO (19:50)
[2018-10-04] MEDS ORDERED: LOPRESSOR25 MG PO (19:50)
[2018-10-04] MEDS ORDERED: COUMADIN3 MG PO (19:53)
[2018-10-04] MEDS ORDERED: POTASSIUM CHLO10 ME1 PO (19:55)
[2018-10-04 20:00] VITALS: BP 126/60
--- NOTE | 2018-10-04 20:10 | NUR ---
received patient aaox3 breathin even and unlabored on RA. nonproductive cough noted. stage 1 to buttock, skin pale. BLE pitting edema. tele #10 a.fib per tele. receiving 1st unit of prbs @100ml/hr, tolerating well. consent in chart, verified orders. pulses intact. denies pain at this time. pink drsg applied to buttock, florecita hose applied bilat., heel protectors applied, alt. pressure pump attached to mattress. R AC 18g, intact and patent. bed locked and in lowest position, call light within easy reach.
--- NOTE | 2018-10-04 21:34 | NUR ---
called placed to MD answering service regarding medication orders, awaiting call back.
[2018-10-04 21:37] VITALS: BP 126/60
[2018-10-04] MEDS ORDERED: VIRTUSSIN PO PRN (21:45)
[2018-10-04] MEDS: POTASSIUM CHLORIDE 10MEQ EA PO SCH (21:45)
[2018-10-04 21:53] VITALS: BP 126/60
[2018-10-04] MEDS: FUROSEMIDE INJ 10 MG/ML 2 ML VIAL IV PRN (22:20)
[2018-10-04] MEDS ORDERED: SODIUM CHLORIDE 0.9% 250ML 250 ML ONE (23:15)
[2018-10-04] MEDS: GUAIFENESIN/CODEINE 10 ML CUP PO PRN (23:23)
--- NOTE | 2018-10-04 23:55 | NUR ---
2nd unit of prbs began at 2340. spent first 15 min with patient. no s/s of adverse reaction noted. increase rate to 100ml/hr. vss. will continue to monitor the patient closely.
[2018-10-05] VITALS (8 sets, daily range): BP systolic 98–139; BP diastolic 54–76
[2018-10-05] MEDS ORDERED: ACETAMINOPHEN 325 MG TAB PO PRN (02:30)
[2018-10-05] MEDS: FUROSEMIDE INJ 10 MG/ML 2 ML VIAL IV PRN (03:11)
[2018-10-05] MEDS ORDERED: SODIUM CHLORIDE 0.9% 250ML 250 ML ONE (05:10)
[2018-10-05] MEDS: LEVOTHYROXINE SODIUM 88 MCG TAB PO SCH (06:42)
--- NOTE | 2018-10-05 07:23 | NUR ---
Received patient. Patient sitting in wheelchair receiving 3rd unit of PRBC at this time. No signs of distress, vitals stable. Call light in reach, will continue to monitor.
--- NOTE | 2018-10-05 08:25 | NUR ---
3rd unit of PRBC complete. Vitals stable, no signs of distress.
[2018-10-05] MEDS: PANTOPRAZOLE 40 MG 10ML VIAL IV SCH ×2 (08:35→17:25)
[2018-10-05] MEDS: TAMSULOSIN HCL 0.4 MG CAP PO SCH (08:35)
[2018-10-05] MEDS: FUROSEMIDE 40 MG TAB PO SCH ×2 (08:35→17:26)
[2018-10-05] MEDS: ATORVASTATIN 20 MG TAB PO SCH (08:35)
[2018-10-05] MEDS: POTASSIUM CHLORIDE 20 MEQ TAB CR PO SCH ×2 (08:35→17:25)
[2018-10-05] MEDS: METOPROLOL TARTRATE 25 MG TAB PO SCH ×2 (08:36→17:26)
[2018-10-05] MEDS: FINASTERIDE 5 MG TAB PO SCH (08:36)
[2018-10-05] MEDS: CHOLECALCIFEROL 1,000 UNIT TAB PO SCH (08:36)
[2018-10-05] MEDS: ALLOPURINOL 100 MG TAB PO SCH (08:36)
[2018-10-05] MEDS: PREGABALIN 50 MG CAP PO SCH ×2 (08:36→17:26)
[2018-10-05] MEDS: DOXYCYCLINE HYCLATE TABLET 100 MG TAB PO SCH (08:36)
[2018-10-05] MEDS ORDERED: NON-FORMULARY MEDICATION (Doxycycline Hyclate 100 MG) PO SCH (09:00)
[2018-10-05] MEDS ORDERED: CHOLECALCIFEROL 1000 MG PO SCH (09:00)
[2018-10-05] MEDS ORDERED: NON-FORMULARY MEDICATION (Furosemide 80 MG) PO SCH (09:00)
--- NOTE | 2018-10-05 09:30 | NUR ---
Patient A/O X3, even respirations on 2LNC. Last BM this morning, stool collected and sent to lab for occult blood. Bowel sounds active. Tele #10 running A-FIB. Patient uses walker but needs assistance with ambulation. Patient voids in the urinal. Stage 1 pressure ulcer on sacrum, pink foam pad in place. Right AC 18 gauge IV SL. Patient sitting in wheelchair at this time. Will continue to monitor, call light in reach.
[2018-10-05 11:43] LABS: BASOPHILS # (AUTO) 0.1 (0.0-0.1); BASOPHILS % 0.6 % (0.0-1.0); EOSINOPHILS # (AUTO) 0.1 (0.0-0.4); EOSINOPHILS % 1.2 % (0.0-6.0); HEMATOCRIT 26.5 % (38.2-49.6); HEMOGLOBIN 8.2 g/dL (14.0-18.0); LYMPHOCYTES # (AUTO) 0.8 (1.0-3.2); LYMPHOCYTES % 8.6 % (18.0-39.1); MEAN CORPUSCULAR HEMOGLOBIN 26.4 pg (28-32); MEAN CORPUSCULAR HGB CONC 30.9 g/dL (31-35); MEAN CORPUSCULAR VOLUME 85.2 fL (81-99); MONOCYTES # (AUTO) 0.7 (0.2-0.8); MONOCYTES % 7.7 % (4.4-11.3); NEUTROPHILS # (AUTO) 7.4 (2.1-6.9); NEUTROPHILS % 81.7 % (38.7-80.0); PLATELET COUNT 195 x10e3/uL (140-360); RED BLOOD COUNT 3.11 x10e6/uL (4.3-5.7); RED CELL DISTRIBUTION WIDTH 17.5 % (11.7-14.4)
[2018-10-05 12:02] LABS: ALBUMIN 3.1 g/dL (3.5-5.0); ALBUMIN/GLOBULIN RATIO 0.9 (0.8-2.0); CALCIUM 8.5 mg/dL (8.4-10.2); CREATININE, SERUM 1.38 mg/dL (0.72-1.25)
[2018-10-05 12:30] LABS: CREATINE KINASE MB 3.1 ng/mL (0-5.0)
--- NOTE | 2018-10-05 15:53 | History and Physical ---
HISTORY OF PRESENT ILLNESS: Patient is an 88-year-old male who has a past medical history positive for aortic valve replacement, chronic atrial fibrillation, history of benign prostatic hypertrophy, hypercholesterolemia, chronic renal insufficiency, aortic valve replacements, atrial fibrillation as I said before, came here sent from Dr. Benitez's office because of anemia. Patient was having black stools for a few days. REVIEW OF SYSTEMS CARDIOVASCULAR: No chest pain or palpitation. RESPIRATORY: No shortness of breath or cough. GASTROINTESTINAL: No nausea. No vomiting. No diarrhea. He did have black stools for few days. GENITOURINARY: No frequency, no dysuria. ALLERGIES: NOT ALLERGIC TO ANY MEDICATION. PAST MEDICAL HISTORY: Chronic atrial fibrillation, aortic valve replacement, chronic renal failure, acquired hypothyroidism, history of peptic ulcer disease. SOCIAL HISTORY: He does not smoke. He does not drink. PHYSICAL EXAMINATION HEART: Irregularly irregular heart rate. Normal S1, S2 sounds. LUNGS: Clear bilaterally. ABDOMEN: Soft. EXTREMITIES: Showed no evidence of cyanosis, edema or trauma. LABORATORY DATA: Show a BMP; sodium 138, potassium 4.0, chloride 102, CO2 25, BUN 33, creatinine 1.38, and glucose 171. CBC; white blood count 8.99, hemoglobin 8.2, hematocrit 26.5, platelet count 185,000. PT 29.2, INR 2.54, PTT 45.5. AST 25, ALT 17. Total bilirubin 1.8. Alkaline phosphatase 61. FINAL IMPRESSION 1. Acute anemia secondary to rectal bleeding. 2. Rectal bleeding. 3. Aortic valve replacement. 4. Chronic atrial fibrillation. 5. Iepnv-jr-rapdwkj renal failure stage 3. 6. Acquired hypothyroidism. PLAN OF TREATMENT: Patient received blood transfusion. Gastroenterology consult with Dr. Sushil Santana has been requested. Cardiology consult with Dr. Tsang has been requested. Continue Protonix 40 mg twice a day. Furosemide has been given post blood transfusion. Continue allopurinol 100 mg daily. Lipitor 20 mg daily. Potassium chloride 10 mEq once a day, doxycycline 100 mg daily, guaifenesin with codeine 10 mL q.6 hours as needed, Proscar 5 mg daily, potassium chloride 20 mEq twice a day, vitamin D daily, levothyroxine 88 mcg daily, Flomax 0.4 mg daily, Lyrica 50 mg twice a day, metoprolol 12.5 mg twice a day, furosemide 80 mg twice a day, Tylenol 650 mg q.6 hours as needed. Job#: [id number] YORDAN
[2018-10-05 16:03] LABS: INR 2.26; PROTHROMBIN TIME 26.7 seconds (11.9-14.5)
[2018-10-05 17:48] LABS: BASOPHILS % 0.4 % (0.0-1.0); EOSINOPHILS # (AUTO) 0.1 (0.0-0.4); EOSINOPHILS % 1.6 % (0.0-6.0); HEMATOCRIT 25.2 % (38.2-49.6); HEMOGLOBIN 7.8 g/dL (14.0-18.0); MEAN CORPUSCULAR HEMOGLOBIN 26.3 pg (28-32); MEAN CORPUSCULAR VOLUME 84.8 fL (81-99); MONOCYTES # (AUTO) 0.6 (0.2-0.8); NEUTROPHILS # (AUTO) 5.7 (2.1-6.9); NEUTROPHILS % 76.7 % (38.7-80.0); PLATELET COUNT 189 x10e3/uL (140-360); RED BLOOD COUNT 2.97 x10e6/uL (4.3-5.7); RED CELL DISTRIBUTION WIDTH 17.6 % (11.7-14.4)
--- NOTE | 2018-10-05 18:45 | Consultation ---
DATE OF CONSULTATION: October 05, 2018 CARDIOLOGY CONSULTATION REQUESTING PHYSICIAN: Dr. Benitez. REASON FOR CONSULTATION: Atrial fibrillation. HISTORY OF PRESENT ILLNESS: This is an 88-year-old man with history of atrial fibrillation, mechanical aortic valve replacement, hyperlipidemia, and chronic kidney disease, who was sent to the ER from Dr. Benitez's office due to anemia. The patient reports he has been having dark stool for the last 1 to 2 weeks. He developed shortness of breath 3 to 4 days prior to admission. He denied any chest pain, palpitations, or orthopnea, but does endorse chronic lower extremity edema, left greater than right. REVIEW OF SYSTEMS: Negative except as per HPI. PAST MEDICAL HISTORY 1. Chronic atrial fibrillation. 2. Mechanical aortic valve replacement. 3. Chronic kidney disease. 4. Hyperlipidemia. 5. Hypothyroidism. 6. History of peptic ulcer disease. PAST SURGICAL HISTORY 1. Knee surgery x3 on the left. 2. Aortic valve replacement. 3. Back surgery. ALLERGIES: NO KNOWN DRUG ALLERGIES. MEDICATIONS: Please see medication list. SOCIAL HISTORY: Denies tobacco, alcohol, or illicit drugs. FAMILY HISTORY: Pertinent for a brother who of a myocardial infarction. PHYSICAL EXAMINATION VITALS: Temperature 97.2 degrees, pulse 72, respiratory rate 18, blood pressure 110/54, oxygen saturation 99% on 2 liters nasal cannula. GENERAL: Well-developed, well-nourished elderly man in no acute distress HEENT: Normocephalic, atraumatic. Pupils are equal. No scleral icterus. NECK: Supple. No thyromegaly or cervical lymphadenopathy. No carotid bruits. LUNGS: Clear to auscultation bilaterally. No wheezes or crackles. CARDIOVASCULAR: Irregularly irregular. A 2/6 systolic murmur. Mechanical S2. ABDOMEN: Soft, nontender. EXTREMITIES: 1+ pitting edema. NEURO: Nonfocal exam. LABS: WBC 8.99, hemoglobin 8.2, hematocrit 26.5, platelets 195. Sodium 138, potassium 4, chloride 102, CO2 of 25, BUN 33, creatinine 1.38. INR 2.26. TELEMETRY: Atrial fibrillation. EKG: AFib with aberrantly conducted complexes, nonspecific ST and T wave abnormality. IMPRESSION 1. Acute anemia secondary to gastrointestinal bleed. 2. Chronic atrial fibrillation. 3. Mechanical aortic valve replacement, on Coumadin therapy. 4. Chronic kidney disease. 5. Hyperlipidemia. 6. Hypothyroidism. RECOMMENDATIONS: Continue current cardiac medications. Warfarin is being held due to anemia. He will need to be bridged once INR drops below 2. Monitor patient closely on telemetry. Further evaluation of anemia per GI. Thank you for this consult. We will continue to follow. Job#: [id number] KERRY
[2018-10-05 20:33] LABS: CREATINE KINASE MB 3.5 ng/mL (0-5.0)
[2018-10-06] VITALS (9 sets, daily range): BP systolic 118–140; BP diastolic 55–89
[2018-10-06 01:25] LABS: BASOPHILS % 0.4 % (0.0-1.0); EOSINOPHILS # (AUTO) 0.2 (0.0-0.4); EOSINOPHILS % 3.4 % (0.0-6.0); HEMATOCRIT 23.4 % (38.2-49.6); HEMOGLOBIN 7.3 g/dL (14.0-18.0); LYMPHOCYTES # (AUTO) 1.2 (1.0-3.2); LYMPHOCYTES % 17.3 % (18.0-39.1); MEAN CORPUSCULAR HEMOGLOBIN 26.1 pg (28-32); MEAN CORPUSCULAR HGB CONC 31.2 g/dL (31-35); MEAN CORPUSCULAR VOLUME 83.6 fL (81-99); MONOCYTES # (AUTO) 0.7 (0.2-0.8); MONOCYTES % 10.7 % (4.4-11.3); NEUTROPHILS # (AUTO) 4.5 (2.1-6.9); NEUTROPHILS % 67.9 % (38.7-80.0); PLATELET COUNT 195 x10e3/uL (140-360); RED CELL DISTRIBUTION WIDTH 17.6 % (11.7-14.4)
[2018-10-06 05:35] LABS: BASOPHILS % 0.4 % (0.0-1.0); EOSINOPHILS # (AUTO) 0.2 (0.0-0.4); EOSINOPHILS % 2.8 % (0.0-6.0); HEMATOCRIT 25.1 % (38.2-49.6); HEMOGLOBIN 7.6 g/dL (14.0-18.0); MEAN CORPUSCULAR HEMOGLOBIN 26.2 pg (28-32); MEAN CORPUSCULAR HGB CONC 30.3 g/dL (31-35); MONOCYTES # (AUTO) 0.6 (0.2-0.8); MONOCYTES % 7.7 % (4.4-11.3); NEUTROPHILS # (AUTO) 6.3 (2.1-6.9); NEUTROPHILS % 76.9 % (38.7-80.0); PLATELET COUNT 207 x10e3/uL (140-360); RED CELL DISTRIBUTION WIDTH 17.9 % (11.7-14.4)
[2018-10-06 05:38] LABS: MEAN CORPUSCULAR VOLUME 86.6 fL (81-99)
[2018-10-06] MEDS: LEVOTHYROXINE SODIUM 88 MCG TAB PO SCH (05:50)
[2018-10-06 05:55] LABS: ALBUMIN/GLOBULIN RATIO 0.9 (0.8-2.0); ANION GAP 14.6 mmol/L (8-16); CALCIUM 8.5 mg/dL (8.4-10.2); CREATININE, SERUM 1.44 mg/dL (0.72-1.25); POTASSIUM 3.6 mmol/L (3.5-5.1)
[2018-10-06 06:08] LABS: INR 2.24; PROTHROMBIN TIME 26.5 seconds (11.9-14.5)
--- NOTE | 2018-10-06 07:24 | NUR ---
Received patient, patient sitting up in chair at this time. No signs of distress, call light in reach.
[2018-10-06] MEDS: FINASTERIDE 5 MG TAB PO SCH (08:05)
[2018-10-06] MEDS: FUROSEMIDE 40 MG TAB PO SCH ×2 (08:05→16:29)
[2018-10-06] MEDS: PREGABALIN 50 MG CAP PO SCH ×2 (08:05→16:29)
[2018-10-06] MEDS: METOPROLOL TARTRATE 25 MG TAB PO SCH ×2 (08:05→16:29)
[2018-10-06] MEDS: PANTOPRAZOLE 40 MG 10ML VIAL IV SCH ×2 (08:05→16:28)
[2018-10-06] MEDS: POTASSIUM CHLORIDE 20 MEQ TAB CR PO SCH ×2 (08:05→16:29)
[2018-10-06] MEDS: DOXYCYCLINE HYCLATE TABLET 100 MG TAB PO SCH (08:05)
[2018-10-06] MEDS: ALLOPURINOL 100 MG TAB PO SCH (08:05)
[2018-10-06] MEDS: ATORVASTATIN 20 MG TAB PO SCH (08:05)
[2018-10-06] MEDS: CHOLECALCIFEROL 1,000 UNIT TAB PO SCH (08:05)
[2018-10-06] MEDS: TAMSULOSIN HCL 0.4 MG CAP PO SCH (08:05)
--- NOTE | 2018-10-06 10:48 | NUR ---
Patient A/O X3, even respirations on 2LNC. Bowel sounds active, last BM yesterday. Tele #10 with AFIB and continuous pulse ox. +2 BLE pitting edema. Patients voids in the urinal. Stage 1 pressure ulcer on sacrum, sacrum foam dressing in place with barrier cream. Right AC 18 gauge IV, S/L. Patient is up with assist and uses walker when ambulating. Call light in reach, will continue to monitor.
[2018-10-06 11:55] LABS: BASOPHILS % 0.4 % (0.0-1.0); EOSINOPHILS # (AUTO) 0.2 (0.0-0.4); EOSINOPHILS % 3.1 % (0.0-6.0); HEMATOCRIT 23.6 % (38.2-49.6); HEMOGLOBIN 7.4 g/dL (14.0-18.0); LYMPHOCYTES # (AUTO) 0.9 (1.0-3.2); LYMPHOCYTES % 11.5 % (18.0-39.1); MEAN CORPUSCULAR HEMOGLOBIN 26.6 pg (28-32); MEAN CORPUSCULAR HGB CONC 31.4 g/dL (31-35); MEAN CORPUSCULAR VOLUME 84.9 fL (81-99); MONOCYTES # (AUTO) 0.8 (0.2-0.8); MONOCYTES % 10.1 % (4.4-11.3); NEUTROPHILS # (AUTO) 5.9 (2.1-6.9); NEUTROPHILS % 74.5 % (38.7-80.0); PLATELET COUNT 155 x10e3/uL (140-360); RED BLOOD COUNT 2.78 x10e6/uL (4.3-5.7); RED CELL DISTRIBUTION WIDTH 17.9 % (11.7-14.4)
--- NOTE | 2018-10-06 14:28 | Progress Note ---
DATE: INTERNAL MEDICINE PROGRESS NOTE SUBJECTIVE: Patient is complaining of cough. He wants to get Robitussin AC to be restarted. PHYSICAL EXAM VITAL SIGNS: Blood pressure 118/59, temperature 96.5, heart rate 84 per minute, respiratory rate is 20 per minute, oxygen saturation 93%. HEART: Irregularly irregular heart rate. Normal S1, S2 sounds. LUNGS: Clear bilaterally. ABDOMEN: Soft. No tension, distention, or visceromegaly. LABORATORY DATA: On the BMP, sodium 138, potassium 3.6, chloride 103, CO2 of 24, BUN 31, creatinine 1.44, glucose is 147. On the CBC, white blood count 7.85, hemoglobin 7.4, hematocrit 23.6, platelet count 155,000. PT 26.5, INR 2.24, PTT 41.6. AST 23, ALT 14, total bilirubin 1.5, and alkaline phosphatase 65. FINAL IMPRESSION 1. Acute anemia secondary to rectal bleeding. 2. Rectal bleeding, which is resolved right now. 3. History aortic valve replacement. 4. Chronic atrial fibrillation. 5. [id number] renal failure, stage 3. 6. Hypothyroidism. PLAN OF TREATMENT: Continue Protonix 40 mg twice a day, allopurinol 100 mg daily, Lipitor 20 mg daily, Proscar 5 mg daily, potassium chloride 20 mEq twice a day, cholecalciferol 1000 units p.o. daily, levothyroxine 88 mcg daily, Flomax 0.4 mg daily, Lyrica 50 mg twice a day, metoprolol 12.5 mg twice a day, furosemide 80 mg twice a day, Tylenol 650 mg at bedtime, potassium chloride 10 mEq on Sunday, doxycycline 100 mg daily, guaifenesin with codeine 10 mL q.[address] Sushil Santana is on the case for gastroenterology. He will decide whether or not he want to do endoscopic evaluation to rule out the source of the bleeding. Dr. Amol Tsang, cant hooker, is on the case also since the patient has history of atrial fibrillation, aortic valve replacement and he was on Coumadin. Coumadin of course has been placed on hold because of the bleeding. Job#: [id number] MARIANNE
[2018-10-06] MEDS: GUAIFENESIN/CODEINE 10 ML CUP PO PRN (15:24)
--- NOTE | 2018-10-06 17:15 | Progress Note ---
DATE: October 06, 2018 CARDIOLOGY PROGRESS NOTE SUBJECTIVE: Patient denies chest pain or shortness of breath. OBJECTIVE VITAL SIGNS: Temperature 96.5 degrees, pulse 84, respiratory rate 20, blood pressure 118/59, oxygen saturation 93% on 2 liters nasal cannula. GENERAL: Awake and alert, no acute distress. LUNGS: Clear to auscultation bilaterally. No wheezes or crackles. CARDIOVASCULAR: Irregularly irregular. A 2/6 systolic murmur, mechanical S2. ABDOMEN: Soft, nontender. EXTREMITIES: 1+ pitting edema. CARDIAC MEDICATIONS 1. Furosemide 80 mg p.o. b.i.d. 2. Metoprolol tartrate 12.5 mg p.o. b.i.d. 3. Atorvastatin 20 mg p.o. daily. 4. Levothyroxine 88 mcg p.o. daily. LABS: WBC 7.85, hemoglobin 7.4, hematocrit 23.6, platelets 155. Sodium 138, potassium 3.6, chloride 103, CO2 of 24, BUN 31, and creatinine 1.44. TELEMETRY: Atrial fibrillation. IMPRESSION 1. Anemia secondary to gastrointestinal bleed. 2. Chronic atrial fibrillation. 3. Mechanical aortic valve replacement, on Coumadin therapy. 4. Impaired right ventricular function. 5. Chronic kidney disease. 6. Hyperlipidemia. 7. Hypothyroidism. RECOMMENDATIONS: Continue current cardiac medications. Due to patient's significant anemia on admission, warfarin is being held. His INR remains therapeutic. He will need to be bridged back to a therapeutic INR with heparin drip once his INR drops below 2. Monitor patient closely on telemetry. Further evaluation of anemia per GI. 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 He will need further evaluation as an outpatient. Thank you for this consult. We will continue to follow. Job#: [id number] YORDAN
[2018-10-06 18:05] LABS: BASOPHILS % 0.4 % (0.0-1.0); EOSINOPHILS # (AUTO) 0.2 (0.0-0.4); EOSINOPHILS % 3.1 % (0.0-6.0); HEMATOCRIT 23.4 % (38.2-49.6); HEMOGLOBIN 7.2 g/dL (14.0-18.0); LYMPHOCYTES # (AUTO) 1.1 (1.0-3.2); LYMPHOCYTES % 15.4 % (18.0-39.1); MEAN CORPUSCULAR HEMOGLOBIN 26.4 pg (28-32); MEAN CORPUSCULAR HGB CONC 30.8 g/dL (31-35); MEAN CORPUSCULAR VOLUME 85.7 fL (81-99); MONOCYTES # (AUTO) 0.7 (0.2-0.8); MONOCYTES % 9.7 % (4.4-11.3); NEUTROPHILS # (AUTO) 4.9 (2.1-6.9); NEUTROPHILS % 71.1 % (38.7-80.0); PLATELET COUNT 158 x10e3/uL (140-360); RED BLOOD COUNT 2.73 x10e6/uL (4.3-5.7); RED CELL DISTRIBUTION WIDTH 18.2 % (11.7-14.4)
--- NOTE | 2018-10-06 18:13 | NUR ---
Paged Dr. Goldberg regarding Hemoglobin results.
--- NOTE | 2018-10-06 19:24 | NUR ---
received patient sleeping but easily arousable in wheelchair. denies pain. stable condition. call light within easy reach.
[2018-10-06 20:07] LABS: INR 2.12; PROTHROMBIN TIME 25.4 seconds (11.9-14.5)
--- NOTE | 2018-10-06 20:43 | NUR ---
Spoke to Dr. Santana regarding stat PT/INR results. Spoke with Dr. Nma, orders to repeat PT/INR in AM.
[2018-10-06] MEDS ORDERED: PEG (High)/E-LYTE SOLN 4,000 ML BTL PO ONE (20:45)
[2018-10-06] MEDS ORDERED: HEPARIN 25,000U/0.45% NS 250ML 1,000 UNIT in Premix Bag 250 ML IV SCH ×2 (21:30→22:15)
[2018-10-06] MEDS ORDERED: HEPARIN SOD (PORCINE) 5,000 UNIT/ML VIAL IV ONE (22:30)
[2018-10-06] MEDS ORDERED: PHYTONADIONE 5 MG TAB PO ONE (22:30)
[2018-10-06] MEDS ORDERED: HEPARIN 25000UNITS/0.45% NS 250 ML BAG IV ONE (22:44)
--- NOTE | 2018-10-06 23:26 | NUR ---
DR. SOUTH ORELLANA. CONSENT SIGNED AND PLACED TO CHART.
[2018-10-07] VITALS (9 sets, daily range): BP systolic 103–145; BP diastolic 55–74
[2018-10-07 04:39] LABS: BASOPHILS % 0.5 % (0.0-1.0); EOSINOPHILS # (AUTO) 0.2 (0.0-0.4); EOSINOPHILS % 3.7 % (0.0-6.0); HEMATOCRIT 21.8 % (38.2-49.6); LYMPHOCYTES # (AUTO) 1.2 (1.0-3.2); MEAN CORPUSCULAR HGB CONC 30.7 g/dL (31-35); MEAN CORPUSCULAR VOLUME 84.5 fL (81-99); MONOCYTES # (AUTO) 0.6 (0.2-0.8); MONOCYTES % 9.8 % (4.4-11.3); NEUTROPHILS # (AUTO) 4.2 (2.1-6.9); NEUTROPHILS % 66.7 % (38.7-80.0); PLATELET COUNT 158 x10e3/uL (140-360); RED BLOOD COUNT 2.58 x10e6/uL (4.3-5.7); RED CELL DISTRIBUTION WIDTH 18.1 % (11.7-14.4)
[2018-10-07 04:42] LABS: HEMOGLOBIN 6.7 g/dL (14.0-18.0)
[2018-10-07 04:43] LABS: INR 2.24; PROTHROMBIN TIME 26.5 seconds (11.9-14.5)
[2018-10-07 04:52] LABS: ALBUMIN 2.7 g/dL (3.5-5.0); ALBUMIN/GLOBULIN RATIO 0.9 (0.8-2.0); ANION GAP 14.2 mmol/L (8-16); CALCIUM 7.9 mg/dL (8.4-10.2); CREATININE, SERUM 1.28 mg/dL (0.72-1.25); POTASSIUM 3.2 mmol/L (3.5-5.1)
[2018-10-07] MEDS: LEVOTHYROXINE SODIUM 88 MCG TAB PO SCH (05:38)
--- NOTE | 2018-10-07 05:47 | NUR ---
2nd iv started to left FA 20g for ordered blood transfusions.
--- NOTE | 2018-10-07 05:58 | NUR ---
PTT reported as greater than 200 sec. per protocol stopped hep drip for 60 min beginning at 0553, and decreased rate by 200units/hr to 800units/hr
--- NOTE | 2018-10-07 06:53 | NUR ---
patient reconnected to hep drip at 800units/hr
--- NOTE | 2018-10-07 08:34 | NUR ---
MD DAVID INTO SEE PT, DISCUSSED POC, HEPARIN STOPPED AT THIS TIME PER MD ORDER
[2018-10-07] MEDS ORDERED: POTASSIUM CHLORIDE 20MEQ/100ML 200 ML IV ONE (08:45)
[2018-10-07] MEDS: FUROSEMIDE 40 MG TAB PO SCH (09:00)
[2018-10-07] MEDS: DOXYCYCLINE HYCLATE TABLET 100 MG TAB PO SCH (09:00)
[2018-10-07] MEDS: TAMSULOSIN HCL 0.4 MG CAP PO SCH (09:00)
[2018-10-07] MEDS: ATORVASTATIN 20 MG TAB PO SCH (09:00)
[2018-10-07] MEDS: PREGABALIN 50 MG CAP PO SCH ×2 (09:00→21:30)
[2018-10-07] MEDS ORDERED: SODIUM CHLORIDE 0.9% 250ML 500 ML ONE (09:00)
[2018-10-07] MEDS: ALLOPURINOL 100 MG TAB PO SCH (09:00)
[2018-10-07] MEDS: FINASTERIDE 5 MG TAB PO SCH (09:00)
[2018-10-07] MEDS: POTASSIUM CHLORIDE 20 MEQ TAB CR PO SCH ×2 (09:00→21:30)
[2018-10-07] MEDS: CHOLECALCIFEROL 1,000 UNIT TAB PO SCH (09:00)
[2018-10-07] MEDS: METOPROLOL TARTRATE 25 MG TAB PO SCH ×2 (09:30→21:30)
[2018-10-07] MEDS: PANTOPRAZOLE 40 MG 10ML VIAL IV SCH ×2 (09:30→22:01)
[2018-10-07] MEDS ORDERED: POTASSIUM CHLORIDE 10MEQ EA PO ONE (09:30)
--- NOTE | 2018-10-07 09:47 | NUR ---
SPOKE WITH MD Marixa DIA, MADE AWARE THAT PT IS STILL FINISHING PREP, NOT CLEAR AT THIS TIME, STATES TO KEEP NPO AFTER FINISHES PREP FOR POSSIBLE EGD/COLONOSCOPY THIS AFTERNOON, AWARE OF ELEVATED PTT, SO "ONLY POSSIBLE TODAY", PT IS AWARE Addendum: 10/07/18 at 0949 by Valeria Garza RN MADE AWARE OF CURRENT ORDERS FOR FFP JUMBO AND PRBC TO BE GIVEN
--- NOTE | 2018-10-07 10:53 | NUR ---
WOUND CARE CONSULTATION - INITIAL EVALUATION Js Zamudio admitted to ER from Home with dark brown stools, anemia, [place], and Fatigue. HX: Aortic Valve Replacement, A-Fib, BPH, Hypercholesterolemia, chronic renal insufficiency. WBC6.3 HGB 6.7 HCT21.8 NEUT%16.7 ALB2.7 Wound Care Consulted for Stage I Pressure Ulcer P.O.A. -PATIENT VISIT: -Patient in bed AAOX3 and in good spirits. -BS 18 - OOB to Chair Daily. Able to Turn Self. -Alt Pressure Mattress. -Conservative Pup Active. -Voices some discomfort to sacral area - Left. - Allevyn Foam Sacrum in place. - Sacrum- no redness noted. some scar tissue to Sacrogluteal Left. [address]. Intact. - Complains of tenderness to area. -Able to turn self, Diapered. - Physio tape to left knee noted. - States prior history of multiple knee surgeries with continued discomfort and now due to compensating the other leg is starting to hurt. - No rash, redness identified. Only mild discomfort to left sacrogluteal area. IMPRESSION: 1. Healed/ Healing Left Sacrogluteal Pressure Ulcer- Stage I - P.O.A. RECOMMENDATION: 1. Sacral Area - - Cleanse area with mild soap and water and pat dry thoroughly Daily - Apply Venelex Ointment and Cover with Allevyn Foam Sacrum Daily. 2. Continue Alternating Pressure Air Mattress 3. Turn and Reposition every 2 hours 4. Offload Heels with pillows while in bed. Thank you for consulting with Wound Care. Addendum: 10/07/18 at 1108 by Fernando Stoddard RN Amended: Links added.
--- NOTE | 2018-10-07 10:53 | NUR ---
NOTIFIED BY TELEMETRY THAT PT HAD 5 BEAT RUN OF VTACH, CURRENTLY AFIB AT 60BPM PER TELEMETRY, INSERT OPERATOR TELEPHONED MD ALVARADO, AWAITING CALL BACK
[2018-10-07] MEDS: GUAIFENESIN/CODEINE 10 ML CUP PO PRN (11:45)
[2018-10-07 12:15] LABS: BASOPHILS % 0.7 % (0.0-1.0); EOSINOPHILS # (AUTO) 0.2 (0.0-0.4); EOSINOPHILS % 3.6 % (0.0-6.0); HEMATOCRIT 22.1 % (38.2-49.6); LYMPHOCYTES # (AUTO) 0.8 (1.0-3.2); LYMPHOCYTES % 14.6 % (18.0-39.1); MEAN CORPUSCULAR HEMOGLOBIN 26.4 pg (28-32); MEAN CORPUSCULAR HGB CONC 30.3 g/dL (31-35); MONOCYTES # (AUTO) 0.6 (0.2-0.8); NEUTROPHILS # (AUTO) 3.9 (2.1-6.9); NEUTROPHILS % 69.7 % (38.7-80.0); PLATELET COUNT 143 x10e3/uL (140-360); RED BLOOD COUNT 2.54 x10e6/uL (4.3-5.7)
--- NOTE | 2018-10-07 12:16 | NUR ---
SPOKE WITH MD Marixa DIA, ORDERS NOTED FOR CLEAR LIQUID DIET Addendum: 10/07/18 at 1805 by Valeria Garza RN MADE AWARE THAT PT IS STILL HAVING DARK STOOLS
[2018-10-07 12:19] LABS: HEMOGLOBIN 6.7 g/dL (14.0-18.0)
--- NOTE | 2018-10-07 14:02 | NUR ---
CASE MANAGEMENT INITIAL ASSESSMENT Customer Operations Manager to bedside to discuss plan of care with patient/family. CM/SW role and care transitions discussed. Anticipated discharge plan discussed along with duration of care. CM/SW discussed patients right to make decisions in care. CM/SW work hours given. Patient lives: alone; currently at a custodial [facility] for therapy; care center staffed 19/03 Admit/Transfer: thru ED Hospital/ER visits since last admit: last hospitalization was 2 years ago, no ED visits since then POA/Emergency contact: daughter Eva Smith [phone] Current/Previous Home Health: currently with [facility] [phone]; nurse comes every 2 weeks, physical therapy 2x/week PCP/Follow-up Care: Dr. Benitez - PCP, Dr. Kevin Mclean - clinical nutrition manager with [employer] Current/Previous DME: wheelchair, walker, CPAP Medications (referring to index hospitalization or the first time you were in the hospital) a. Were changes made in your medications when you were in the hospital on [date of index hospitalization]? n/a b. Did you understand the changes? n/a c. Were you able to obtain your new medications right away? n/a d. Were you able to take your medications like the doctor wanted you to? n/a e. Did the hospital give you an accurate, easy to understand list of medications when you left? n/a Scale of 1-10 how comfortable does patient feel with disease management in outpatient settin Other Services: none Employment Status: retired Areas of Concerns: anemia, GI bleed Referral Needs: return with home health Education Needs: medical management IMM/NOONAN given and signed (if applicable): not at this time Goal for discharge: return back to custodial and continue with home health therapy; states he hopes to return to his own home in a month or so CM/SW left business card at the bedside with contact information. Name and number was also written on the patients whiteboard. Patient verbalized understanding of discussion. CM will follow-up with ongoing discharge and transition of care needs.
--- NOTE | 2018-10-07 14:35 | Progress Note ---
DATE: October 07, 2018 CARDIOLOGY PROGRESS NOTE SUBJECTIVE: Patient denies chest pain. He is complaining of some shortness of breath. He had 1 FFP given for elevated INR and is scheduled for 2 units of PRBCs. OBJECTIVE VITALS: Temperature 96.1 degrees, pulse 71, respiratory rate 16, blood pressure 113/55, oxygen saturation 96% on 2 liters nasal cannula. GENERAL: Awake and alert, in no acute distress. LUNGS: Clear to auscultation bilaterally. No wheezes or crackles. CARDIOVASCULAR: Normal rate, irregularly irregular. A 2/6 systolic murmur, mechanical S2. ABDOMEN: Soft, nontender. EXTREMITIES: 1+ pitting edema. CARDIAC MEDICATIONS 1. Metoprolol tartrate 12.5 mg p.o. q.12 h. 2. Levothyroxine 88 mcg p.o. daily. 3. Furosemide 80 mg p.o. b.i.d. 4. Atorvastatin 20 mg p.o. nightly. LABS: WBC 5.15, hemoglobin 6.7, hematocrit 22.1, platelets 143. Sodium 137, potassium 3.2, chloride 102, CO2 of 25, BUN 26, and creatinine 1.28. INR 2.24. TELEMETRY: Atrial fibrillation. IMPRESSION 1. Anemia secondary to suspected gastrointestinal bleed. 2. Chronic atrial fibrillation. 3. Mechanical aortic valve replacement, on Coumadin therapy. 4. Impaired right ventricular function. 5. Chronic kidney disease. 6. Hyperlipidemia. 7. Hypothyroidism. RECOMMENDATIONS: Warfarin was held due to the patient's anemia on presentation. Given plan for EGD and colonoscopy with continued drop in hemoglobin and hematocrit, vitamin K and FFP have been given. Monitor INR closely. His target INR is 2.5 to 3.5, given his mechanical aortic valve and atrial fibrillation. Watch the patient closely on telemetry. Further evaluation of anemia per GI. The patient has moderate prosthetic valve stenosis with a peak velocity of 3.7 mmHg. He will need further evaluation as an outpatient. Add Lasix, given volume load with FFP and blood transfusion. Thank you for this consult. We will continue to follow. Job#: [id number]
--- NOTE | 2018-10-07 15:39 | Diagnostic Imaging Report ---
EXAMINATION: CHEST SINGLE (PORTABLE) INDICATION: Shortness of breath. COMPARISON: Chest radiograph 10/03/[address] Chest 10/04/2018. FINDINGS: TUBES and LINES: None. LUNGS: There is central vascular congestion without evidence of pulmonary edema. Mild patchy bibasilar opacities. No evidence of lobar consolidation. PLEURA: No pleural effusion or pneumothorax. HEART AND MEDIASTINUM: The cardiomediastinal silhouette is unchanged with cardiomegaly. BONES AND SOFT TISSUES: No acute osseous abnormality. Status post median sternotomy. UPPER ABDOMEN: No free air under the diaphragm. IMPRESSION: Cardiomegaly and central vascular congestion without evidence of pulmonary edema. Mild patchy bibasilar opacities, likely representing atelectasis. No evidence of lobar pneumonia. Signed by: Dr. Dary Lockett MD on 10/07/2018 3:36 PM
[2018-10-07] MEDS ORDERED: FUROSEMIDE INJ 10 MG/ML 2 ML VIAL ONE (16:33)
[2018-10-07] MEDS ORDERED: SODIUM CHLORIDE 0.9% 250ML 250 ML ONE (16:33)
[2018-10-07] MEDS ORDERED: FUROSEMIDE INJ 10 MG/ML 2 ML VIAL IV ONE (16:45)
[2018-10-07] MEDS ORDERED: FUROSEMIDE INJ 10 MG/ML 4 ML VIAL IV SCH (17:00)
--- NOTE | 2018-10-07 18:05 | NUR ---
TELEPHONED MD Marixa DIA TO MAKE AWARE THAT PT IS HAVING LOOSE VSTOOL
[2018-10-07] MEDS ORDERED: BISACODYL 5 MG TAB EC PO ONE ×3 (18:30→19:30)
--- NOTE | 2018-10-07 20:00 | NUR ---
BLOOD TRANSFUSION DONE VITAL SIGNS WITHIN NORMAL LIMITS
[2018-10-07] MEDS: FUROSEMIDE INJ 10 MG/ML 4 ML VIAL IV SCH (20:02)
--- NOTE | 2018-10-07 21:15 | NUR ---
PAGEIgnacio AND TALKED TO DR. DAVID REGARDING DUE CBC TEST FOR 1800 TODAY. STATED TO CANCEL THE SCHEDULES CBC AND WILL BE TAKEN IN TOMORROW AM.
[2018-10-07] MEDS ORDERED: CITRATE OF MAGNESIA 300ML BOTTLE PO ONE (22:00)
--- NOTE | 2018-10-07 23:00 | NUR ---
PATIENT REFUSED CPAP.
[2018-10-08] VITALS (7 sets, daily range): BP systolic 119–145; BP diastolic 60–83
[2018-10-08] MEDS ORDERED: CITRATE OF MAGNESIA 300ML BOTTLE PO ONE (06:00)
[2018-10-08] MEDS: FUROSEMIDE INJ 10 MG/ML 4 ML VIAL IV SCH ×2 (06:12→18:43)
[2018-10-08] MEDS: LEVOTHYROXINE SODIUM 88 MCG TAB PO SCH (06:12)
[2018-10-08 06:30] LABS: BASOPHILS % 0.4 % (0.0-1.0); EOSINOPHILS # (AUTO) 0.2 (0.0-0.4); EOSINOPHILS % 3.2 % (0.0-6.0); HEMATOCRIT 24.1 % (38.2-49.6); HEMOGLOBIN 7.7 g/dL (14.0-18.0); LYMPHOCYTES # (AUTO) 1.1 (1.0-3.2); MEAN CORPUSCULAR HEMOGLOBIN 26.8 pg (28-32); MONOCYTES # (AUTO) 0.8 (0.2-0.8); MONOCYTES % 10.3 % (4.4-11.3); NEUTROPHILS # (AUTO) 5.4 (2.1-6.9); NEUTROPHILS % 71.7 % (38.7-80.0); PLATELET COUNT 174 x10e3/uL (140-360); RED BLOOD COUNT 2.87 x10e6/uL (4.3-5.7); RED CELL DISTRIBUTION WIDTH 17.4 % (11.7-14.4)
[2018-10-08 06:34] LABS: INR 1.54; PARTIAL THROMBOPLASTIN TIME 44.6 seconds (23.8-35.5); PROTHROMBIN TIME 19.8 seconds (11.9-14.5)
[2018-10-08 06:52] LABS: ALBUMIN 2.8 g/dL (3.5-5.0); ANION GAP 12.3 mmol/L (8-16); CALCIUM 8.3 mg/dL (8.4-10.2); CREATININE, SERUM 1.27 mg/dL (0.72-1.25); POTASSIUM 3.3 mmol/L (3.5-5.1)
[2018-10-08] MEDS ORDERED: SODIUM CHLORIDE 0.9% 250ML 250 ML ONE (08:27)
--- NOTE | 2018-10-08 08:30 | NUR ---
MD DAVID AND MD Dick FINLEY INTO SEE PT, BOTH MADE AWARE THAT PER TELEMETRY PT HEART RATE IS DROPPING TO 38 AND BACK UP TO 60'S, ORDERS NOTED
--- NOTE | 2018-10-08 08:39 | NUR ---
SPOKE WITH MD Marixa DIA, MADE AWARE THAT PT IS STILL NOT CLEAR, AND THAT MD DAVID RECOMMENDS ONLY DOING EGD TODAY, MD Marixa DIA AGREED, NURSE SPOKE WITH REI IN OR TO MAKE AWARE TO SCHEDULE
[2018-10-08] MEDS: CHOLECALCIFEROL 1,000 UNIT TAB PO SCH (09:00)
[2018-10-08] MEDS: FINASTERIDE 5 MG TAB PO SCH (09:00)
[2018-10-08] MEDS: POTASSIUM CHLORIDE 20 MEQ TAB CR PO SCH ×2 (09:00→20:04)
[2018-10-08] MEDS: BALSAM PERU/CASTOR OIL 60 GM OINT...G. TP SCH (09:00)
[2018-10-08] MEDS: TAMSULOSIN HCL 0.4 MG CAP PO SCH (09:00)
[2018-10-08] MEDS: ALLOPURINOL 100 MG TAB PO SCH (09:00)
[2018-10-08] MEDS: DOXYCYCLINE HYCLATE TABLET 100 MG TAB PO SCH (09:00)
[2018-10-08] MEDS: PANTOPRAZOLE 40 MG 10ML VIAL IV SCH ×2 (09:00→20:04)
[2018-10-08] MEDS: PREGABALIN 50 MG CAP PO SCH ×2 (09:00→20:04)
[2018-10-08] MEDS ORDERED: POTASSIUM CHLORIDE 20MEQ/100ML 200 ML IV ONE (09:00)
[2018-10-08] MEDS: ATORVASTATIN 20 MG TAB PO SCH (09:00)
--- NOTE | 2018-10-08 09:50 | NUR ---
1ST BAG OF POTASSIUM INFUSING, PT TOLERATING AT THIS TIME
--- NOTE | 2018-10-08 10:51 | NUR ---
PT CLEANSED OF LOOSE BLACK STOOL, REPOSITIONED, CALL LIGHT WITHIN REACH
--- NOTE | 2018-10-08 12:48 | NUR ---
DISCUSSED IN ROUNDS TODAY PT RECVD 5 UNITS, 2 FROZEN PLASMA GETTING EGD TODAY AND WILL RETURN TO PERSONAL ASSISTED UPON DISCHARGE.
--- NOTE | 2018-10-08 12:53 | NUR ---
PT CLEANSED OF DARK LOOSE STOOL , WHEELED OFF UNIT VIA BED FOR EGD, NO CHANGE IN CONDITION, FAMILY AT SIDE
[2018-10-08] MEDS ORDERED: GLUCAGON FOR INJ 1 MG VIAL ONE (13:39)
--- NOTE | 2018-10-08 15:20 | NUR ---
BACK IN ROOM VIA BED, AA&O, 2L NC, DENIES PAIN AT THIS TIME, CALL LIGHT WITHIN REACH
--- NOTE | 2018-10-08 15:47 | Operative Report ---
DATE OF PROCEDURE: October 08, 2018 REFERRING PHYSICIAN: Dr. Hawk David PROCEDURES PERFORMED 1. Esophagogastroduodenoscopy with biopsies. 2. Colonoscopy with polypectomy and hemoclipping. INDICATIONS FOR EGD: Anemia. History of melena. INDICATIONS FOR COLONOSCOPY: Anemia. MEDICATION: Patient was done under MAC. Please see anesthesiologist's note. PROCEDURE: With the patient in the left lateral decubitus position, the flexible fiberoptic Olympus gastroscope was introduced into the esophagus under direct visualization without any difficulty. There was some patchy erythema noted in the distal esophagus. The scope was then advanced with ease into the stomach. Mucosa overlying the antrum and the body revealed some diffuse erythema and low-grade to moderate edema, and biopsies were obtained and sent to stain for H. pylori. Pylorus was of normal contour and shape. It was intubated with ease, and the scope was advanced all the way to the 2nd portion of the duodenum. The scope was then withdrawn slowly. The mucosa overlying the proximal 2nd portion and the duodenal bulb appeared to be within normal limits. The scope was then withdrawn back into the stomach and retroflexed. Mucosa overlying the fundus and the cardia appeared to be within normal limits. There was a submucosal nodule in the fundus, and that was not biopsied in case it was a vascular structure to avoid inducing additional source of blood loss. The scope was then straightened out. It was subsequently withdrawn. Patient tolerated the procedure well. IMPRESSION 1. Distal esophagitis, mild. 2. Gastritis, biopsied. Biopsies sent to stain for H. pylori. PLAN: Follow up histology. Initiate Protonix 40 mg 1 p.o. q.a.m. a.c. The patient was then turned around. After adequate lubrication of the anal canal, a flexible fiberoptic Olympus colonoscope was inserted into the rectum with ease and advanced all the way to the cecum. There was some melena staining the colon throughout. A cluster of polyps were noted in the cecum, and 2 clusters were removed per snare electrocautery. The polypectomy sites were hemoclipped x2. The ileocecal valve was intubated, and scope was advanced into the terminal ileum. There were some coffee-ground stains in the terminal ileum, but no active bleeding site was noted. The scope was then withdrawn back into the colon. It was then withdrawn slowly, and whatever was visualized of the mucosa overlying the ascending, transverse, descending and sigmoid, other than for some diverticular disease which was more prominent in the left colon, appeared to be grossly within normal limits. One polyp was snared from the rectum. The scope was then retroflexed into the distal rectum, and small internal hemorrhoids were noted, none of which was actively bleeding. The scope was then straightened out. It was subsequently withdrawn. Patient tolerated the procedure well. IMPRESSION 1. Two clusters of polyps, cecum, removed per snare electrocautery, and site was hemoclipped x2. 2. Diverticulosis. 3. Rectal polyp x1, snared. 4. Internal hemorrhoids, none actively bleeding. PLAN: Follow up histology. Findings do not necessarily explain the patient's blood loss. Will proceed with GI bleed scan. If negative, patient might benefit from a capsule endoscopy. Job#: [id number] cc:HAWK DAVID MD
--- NOTE | 2018-10-08 16:19 | Progress Note ---
DATE: October 08, 2018 CARDIOVASCULAR PROGRESS NOTE SUBJECTIVE: Had no major events overnight. Continues with bowel prep. OBJECTIVE VITAL SIGNS: Temperature 97.8, pulse 69, respiratory rate 16, blood pressure 102/75, and satting 98% on 2 L nasal cannula. GENERAL: Elderly man in no acute distress. CARDIOVASCULAR: Regular rate and rhythm. Mechanical click of 2/6 systolic murmur right upper sternal border. LUNGS: Clear to auscultation. ABDOMEN: Soft, nontender and nondistended. Obese. NEURO AND PSYCH: Alert and oriented to person, place and time. Normal affect. INPATIENT MEDICATIONS: Reviewed. LABORATORY DATA: Reviewed. Telemetry data reviewed. Shows atrial fibrillation. ASSESSMENT AND PLAN 1. Anemia secondary to gastrointestinal bleeding. 2. Chronic atrial fibrillation. 3. Mechanical aortic valve replacement, on Coumadin. 4. Impaired right ventricular function. 5. Chronic kidney disease. 6. Hyperlipidemia. 7. Hypothyroidism: Warfarin being held for gastrointestinal bleeding given atrial fibrillation and mechanical aortic valve. PLAN: Continue IV heparin while the patient is off Coumadin. However, due to ongoing GI bleeding and severe anemia, this was stopped. Recommend putting the patient on aspirin at least while the patient is off anticoagulation. Continue other medications otherwise. Thank you for this consult. Will continue to follow. Job#: [id number] BHUPENDRA
--- NOTE | 2018-10-08 17:07 | NUR ---
TOLERATING ICE CHIPS AND LIQUIDS AT THIS TIME, PT AWARE OF PENDING GI BLEED SCAN, CALL LIGHT WITHIN REACH
--- NOTE | 2018-10-08 17:29 | NUR ---
WHEELED OFF UNIT VIA BED FOR GI BLEED SCAN, NO CHANGE IN CONDITION
--- NOTE | 2018-10-08 18:54 | NUR ---
BACK IN ROOM VIA BED, DINNER TRAY SET UP, PT DENIES PAIN AT THIS TIME, CALL LIGHT WITHIN REACH
--- NOTE | 2018-10-08 18:55 | Diagnostic Imaging Report ---
Tagged-RBC GI Bleed Study Clinical information: 88-year-old female with dark tarry stools x few days; anemia. Discussion: The patient's own red blood cells were labeled with 28 mCi of technetium-99m pertechnetate using the in vitro method (UltraTag). Dynamic images of the abdomen were obtained through 60 minutes. Distribution of tracer activity appears physiologic throughout the abdomen. No abnormal accumulation of tracer is seen within the gastrointestinal lumen. Impression: No scan evidence of active gastrointestinal bleeding at this time. Signed by: Dr. Dacia Almanza M.D. on 10/08/2018 6:52 PM
--- NOTE | 2018-10-08 19:02 | NUR ---
WALKING ROUNDS PERFORMED, RECEIVED PT LAYING FOWLERS IN BED, AAOX3, RR EVEN AND NON-LABORED, O2 BY NC AT 2L. NO S/SX OF DISTRESS NOTED. PT EATING DINNER AT THIS TIME. LEFT PT LAYING FOWLERS IN BED, BED IN LOW LOCKED POSITION, SIDE RAILS UPX2, CALL LIGHT AND PHONE WITHIN REACH.
[2018-10-08] MEDS ORDERED: PROPOFOL IV EMULSION 10 MG/ML 20 ML VIAL ONE (19:09)
[2018-10-08] MEDS ORDERED: LIDOCAINE HCL 2% LOCAL INJ 5 ML SDV VIAL INJ ONE (19:09)
[2018-10-08] MEDS: GUAIFENESIN/CODEINE 10 ML CUP PO PRN (22:13)
[2018-10-09] VITALS (8 sets, daily range): BP systolic 108–133; BP diastolic 55–80
[2018-10-09] MEDS: LEVOTHYROXINE SODIUM 88 MCG TAB PO SCH (06:10)
[2018-10-09] MEDS: FUROSEMIDE INJ 10 MG/ML 4 ML VIAL IV SCH ×2 (06:10→17:05)
[2018-10-09 06:13] LABS: BASOPHILS % 0.5 % (0.0-1.0); EOSINOPHILS # (AUTO) 0.2 (0.0-0.4); EOSINOPHILS % 2.9 % (0.0-6.0); HEMATOCRIT 23.2 % (38.2-49.6); HEMOGLOBIN 7.2 g/dL (14.0-18.0); LYMPHOCYTES # (AUTO) 1.1 (1.0-3.2); LYMPHOCYTES % 13.5 % (18.0-39.1); MEAN CORPUSCULAR HEMOGLOBIN 26.7 pg (28-32); MEAN CORPUSCULAR VOLUME 85.9 fL (81-99); MONOCYTES # (AUTO) 0.8 (0.2-0.8); MONOCYTES % 10.2 % (4.4-11.3); NEUTROPHILS # (AUTO) 5.8 (2.1-6.9); NEUTROPHILS % 72.6 % (38.7-80.0); PLATELET COUNT 161 x10e3/uL (140-360); RED CELL DISTRIBUTION WIDTH 17.8 % (11.7-14.4)
[2018-10-09 06:30] LABS: INR 1.44; PROTHROMBIN TIME 18.7 seconds (11.9-14.5)
[2018-10-09 06:31] LABS: PARTIAL THROMBOPLASTIN TIME 47.3 seconds (23.8-35.5)
[2018-10-09 06:34] LABS: ALBUMIN 2.7 g/dL (3.5-5.0); ANION GAP 10.9 mmol/L (8-16); CALCIUM 8.1 mg/dL (8.4-10.2); CREATININE, SERUM 1.59 mg/dL (0.72-1.25)
--- NOTE | 2018-10-09 06:35 | NUR ---
BED BATH AND LINEN CHANGE PERFORMED. ASSISTED PT TO WHEELCHAIR. LEFT PT SITTING IN WHEELCHAIR WITH TRAY TABLE AT SIDE WITH CALL LIGHT WITHIN REACH.
[2018-10-09 06:46] LABS: POTASSIUM 2.9 mmol/L (3.5-5.1)
--- NOTE | 2018-10-09 07:00 | NUR ---
Critical lab called regarding potassium level of 2.9. Will call MD and get orders
--- NOTE | 2018-10-09 07:14 | NUR ---
Rcvd patient in report this am. Patient is asleep in bed at this time. No s/s of distress noted
[2018-10-09] MEDS ORDERED: POTASSIUM CHLORIDE 20 MEQ TAB CR PO ONE ×3 (07:45→12:00)
[2018-10-09] MEDS: PANTOPRAZOLE 40 MG 10ML VIAL IV SCH ×2 (07:59→21:55)
[2018-10-09] MEDS: CHOLECALCIFEROL 1,000 UNIT TAB PO SCH (08:00)
[2018-10-09] MEDS: POTASSIUM CHLORIDE 10MEQ EA PO SCH (08:00)
[2018-10-09] MEDS: PREGABALIN 50 MG CAP PO SCH ×2 (08:00→21:55)
[2018-10-09] MEDS: ALLOPURINOL 100 MG TAB PO SCH (08:00)
[2018-10-09] MEDS: FINASTERIDE 5 MG TAB PO SCH (08:00)
[2018-10-09] MEDS: DOXYCYCLINE HYCLATE TABLET 100 MG TAB PO SCH (08:00)
[2018-10-09] MEDS: POTASSIUM CHLORIDE 20 MEQ TAB CR PO SCH ×2 (08:00→21:55)
[2018-10-09] MEDS: BALSAM PERU/CASTOR OIL 60 GM OINT...G. TP SCH (08:32)
--- NOTE | 2018-10-09 09:35 | Diagnostic Imaging Report ---
EXAMINATION: CHEST SINGLE (PORTABLE) INDICATION: Congestive heart failure. ^CHF ^[id number] ^[id number] ^Y COMPARISON: October 07, 2018 FINDINGS: TUBES and LINES: None. LUNGS: There is central vascular congestion without evidence of pulmonary edema. Mild patchy bibasilar opacities. No evidence of lobar consolidation. PLEURA: No pleural effusion or pneumothorax. HEART AND MEDIASTINUM: The cardiomediastinal silhouette is unchanged with cardiomegaly. BONES AND SOFT TISSUES: No acute osseous abnormality. Status post median sternotomy. UPPER ABDOMEN: No free air under the diaphragm. IMPRESSION: Cardiomegaly and central vascular congestion without evidence of pulmonary edema. Mild patchy bibasilar opacities, likely representing atelectasis. No evidence of lobar pneumonia. Signed by: Dr. Leonard Motley M.D. on 10/09/2018 9:31 AM
--- NOTE | 2018-10-09 10:57 | NUR ---
Patient is AAOx3. Patient lung bates diminished to auscultation. SOme shortness of breath at rest and exertion. No O2 needed at this time. 100% on room air. Bowel sounds present and active x4. 2+ edema noted to BLE. Some discoloration noted. Patient can transfer and ambulate with assist. Patient prefers to sit in his wheelchair for most of the day. Staff encourages patient to alternate the pressure when he is sitting d/t him having redness to his sacral area. Patient can ambulate with his walker. No c/o pain. No s/s of distress noted
[2018-10-09] MEDS ORDERED: ACETAMINOPHEN 325 MG TAB PO PRN ×2 (11:00)
[2018-10-09] MEDS: CEFEPIME 1GM/NS 0.9% 50 ML 50 ML IV SCH (12:24)
--- NOTE | 2018-10-09 12:27 | NUR ---
EDUCATED ABOUT IMM, SIGNED, FILED IN CHART, WITH COPY LEFT WITH FAMILY AT BEDSIDE.
[2018-10-09] MEDS: VANCOMYCIN 1GM/NS 250 ML 250 ML IV SCH (13:42)
--- NOTE | 2018-10-09 14:48 | NUR ---
Nutrition Screen Note RD Recommendation for Physician: -Rec adding vitamin K restriction to current diet order Plan of Care: RD following, monitoring for tolerance and adequacy Nutrition reason for involvement: LOS Primary Diagnose(s): Anemia secondary to gastrointestinal bleeding. PMH: chronic atrial fibrillation, history of benign prostatic hypertrophy, hypercholesterolemia, chronic renal insufficiency, aortic valve replacements, atrial fibrillation Ht: 68in Wt: 242lb BMI: 36.8kg/m2 IBW: 154lb RD Assessment: (10/09) Chart reviewed. Labs and meds reviewed. 88yo M, who was admitted for GI bleed. 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 Pt denied chewing/swallowing problems and nausea/vomiting. RN recorded 75-100% meal intake since admission. LBM 10/08. Will continue to monitor and follow. Current Diet: cardiac diet Malnutrition Evaluation (10/09) The patient does not meet criteria for a specified degree of malnutrition at this time. Will re-evaluate at follow-up as appropriate. Diet Education Needs Assessment: Diet education not indicated. Nutrition Care Level: low Signed: Ana Lilia Harris, , RD, LD
--- NOTE | 2018-10-09 16:57 | Progress Note ---
DATE: October 09, 2018 CARDIOLOGY PROGRESS NOTE SUBJECTIVE: The patient denies chest pain or shortness of breath. OBJECTIVE VITALS: Temperature 97.9 degrees, pulse 61, respiratory rate 20, blood pressure 130/59, oxygen saturation 100% on room air. GENERAL: Awake, alert and in no acute distress. LUNGS: Clear to auscultation bilaterally. No wheezes or crackles. CARDIOVASCULAR: Normal rate. Regular rhythm. A 2/6 systolic murmur at the right upper sternal border. Mechanical S2. ABDOMEN: Soft and nontender. EXTREMITIES: No edema. CARDIAC MEDICATIONS 1. Furosemide 40 mg IV q.12 h. 2. Levothyroxine 88 mcg p.o. daily. LABS: WBC 7.98, hemoglobin 7.2, hematocrit 23.2, and platelets 161,000. Sodium 134, potassium 2.9, chloride 100, CO2 26, BUN 22, creatinine 1.59. INR 1.44. Telemetry is atrial fibrillation. IMPRESSION 1. Anemia secondary to acute gastrointestinal bleeding. 2. Chronic atrial fibrillation. 3. Mechanical aortic valve replacement, on Coumadin. 4. Impaired right ventricular function. 5. Chronic kidney disease. 6. Hyperlipidemia. 7. Hypothyroidism. RECOMMENDATIONS: Replete electrolytes. Continue current cardiac medications. Start aspirin. Recommend resuming heparin drip given risk of mechanical valve thrombosis with subtherapeutic INR. The patient's target INR is 2.5 to 3.5 given his mechanical aortic valve replacement and atrial fibrillation. Continue monitoring the patient on telemetry. 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 Thank you for this consult. We will continue to follow. Job#: [id number]
[2018-10-09] MEDS: ATORVASTATIN 20 MG TAB PO SCH (21:55)
[2018-10-09] MEDS: TAMSULOSIN HCL 0.4 MG CAP PO SCH (21:55)
[2018-10-09] MEDS: GUAIFENESIN/CODEINE 10 ML CUP PO PRN (22:06)
[2018-10-10] VITALS (8 sets, daily range): BP systolic 113–136; BP diastolic 56–66
[2018-10-10 05:49] LABS: BASOPHILS % 0.6 % (0.0-1.0); EOSINOPHILS # (AUTO) 0.3 (0.0-0.4); HEMATOCRIT 24.1 % (38.2-49.6); HEMOGLOBIN 7.3 g/dL (14.0-18.0); LYMPHOCYTES % 14.5 % (18.0-39.1); MEAN CORPUSCULAR HGB CONC 30.3 g/dL (31-35); MEAN CORPUSCULAR VOLUME 85.8 fL (81-99); MONOCYTES # (AUTO) 0.8 (0.2-0.8); MONOCYTES % 11.5 % (4.4-11.3); NEUTROPHILS # (AUTO) 4.5 (2.1-6.9); NEUTROPHILS % 68.9 % (38.7-80.0); PLATELET COUNT 157 x10e3/uL (140-360); RED BLOOD COUNT 2.81 x10e6/uL (4.3-5.7)
[2018-10-10] MEDS: FUROSEMIDE INJ 10 MG/ML 4 ML VIAL IV SCH ×2 (06:02→17:32)
[2018-10-10] MEDS: LEVOTHYROXINE SODIUM 88 MCG TAB PO SCH (06:02)
[2018-10-10 06:11] LABS: ALBUMIN 2.7 g/dL (3.5-5.0); ANION GAP 13.6 mmol/L (8-16); CALCIUM 8.4 mg/dL (8.4-10.2); CREATININE, SERUM 1.41 mg/dL (0.72-1.25); POTASSIUM 4.6 mmol/L (3.5-5.1)
--- NOTE | 2018-10-10 07:40 | NUR ---
Rcvd patient in report this am. Patient is asleep in bed at this time. No s/s of distress noted
[2018-10-10] MEDS ORDERED: ASPIRIN 81 MG ENTERIC COATED PO SCH (09:00)
[2018-10-10] MEDS: CHOLECALCIFEROL 1,000 UNIT TAB PO SCH (09:07)
[2018-10-10] MEDS: FINASTERIDE 5 MG TAB PO SCH (09:07)
[2018-10-10] MEDS: PREGABALIN 50 MG CAP PO SCH ×2 (09:07→21:50)
[2018-10-10] MEDS: POTASSIUM CHLORIDE 20 MEQ TAB CR PO SCH ×2 (09:07→21:50)
[2018-10-10] MEDS: ALLOPURINOL 100 MG TAB PO SCH (09:07)
[2018-10-10] MEDS: PANTOPRAZOLE 40 MG 10ML VIAL IV SCH ×2 (09:07→21:50)
[2018-10-10] MEDS: CEFEPIME 1GM/NS 0.9% 50 ML 50 ML IV SCH (11:57)
[2018-10-10] MEDS: VANCOMYCIN 1GM/NS 250 ML 250 ML IV SCH (14:12)
[2018-10-10] MEDS: BALSAM PERU/CASTOR OIL 60 GM OINT...G. TP SCH (16:36)
--- NOTE | 2018-10-10 19:02 | NUR ---
received patient aaox3, up in wheelchair. denies pain, denies needs. patient in stable condition. call light within easy reach. will continue to monitor the patient closely.
--- NOTE | 2018-10-10 19:08 | Progress Note ---
DATE: October 10, 2018 CARDIOVASCULAR PROGRESS NOTE SUBJECTIVE: No major events overnight. Had EGD and colonoscopy yesterday, showed no signs of bleeding. Patient is to undergo capsule endoscopy with GI as an outpatient. OBJECTIVE: VITAL SIGNS: Temperature afebrile, pulse 80, respiratory rate 18, blood pressure 126/60, satting 95% on room air. GENERAL: Obese man, no acute distress. CARDIOVASCULAR: Regular rate and rhythm. A 2/6 systolic murmur right upper sternal border. Mechanical S2. LUNGS: Clear to auscultation. ABDOMEN: Obese, soft, nontender. NEURO AND PSYCH: Alert and oriented to person, place, and time. Normal affect. CARDIOVASCULAR MEDICATIONS: Reviewed. LABORATORY DATA: Reviewed. ASSESSMENT: 1. Anemia secondary to acute gastrointestinal bleeding. 2. Chronic atrial fibrillation. 3. Mechanical aortic valve replacement, on Coumadin. 4. Impaired right ventricular function. 5. Chronic kidney disease. 6. Hyperlipidemia. 7. Hypothyroidism. PLAN: Patient needs to resume his warfarin if acceptable from a GI standpoint given mechanical aortic valve as well as atrial fibrillation. He is moderate risk for valve thrombosis as well as cardioembolic phenomenon if he remains off Coumadin. If there still remains concern for bleeding, recommend starting heparin to see if he can tolerate anticoagulation prior to discharge. Thank you for this consult. Will continue to follow. Job#: [id number] RICKY
[2018-10-10] MEDS: TAMSULOSIN HCL 0.4 MG CAP PO SCH (21:50)
[2018-10-10] MEDS: ATORVASTATIN 20 MG TAB PO SCH (21:50)
[2018-10-11] VITALS (8 sets, daily range): BP systolic 109–177; BP diastolic 51–74
[2018-10-11 05:59] LABS: BASOPHILS % 0.7 % (0.0-1.0); EOSINOPHILS # (AUTO) 0.3 (0.0-0.4); EOSINOPHILS % 4.6 % (0.0-6.0); HEMATOCRIT 23.3 % (38.2-49.6); LYMPHOCYTES # (AUTO) 0.9 (1.0-3.2); LYMPHOCYTES % 16.7 % (18.0-39.1); MEAN CORPUSCULAR HEMOGLOBIN 26.2 pg (28-32); MEAN CORPUSCULAR HGB CONC 29.6 g/dL (31-35); MEAN CORPUSCULAR VOLUME 88.6 fL (81-99); MONOCYTES # (AUTO) 0.5 (0.2-0.8); MONOCYTES % 8.9 % (4.4-11.3); NEUTROPHILS # (AUTO) 3.9 (2.1-6.9); NEUTROPHILS % 68.6 % (38.7-80.0); PLATELET COUNT 142 x10e3/uL (140-360); RED BLOOD COUNT 2.63 x10e6/uL (4.3-5.7); RED CELL DISTRIBUTION WIDTH 17.8 % (11.7-14.4)
[2018-10-11 06:00] LABS: HEMOGLOBIN 6.9 g/dL (14.0-18.0)
[2018-10-11] MEDS: LEVOTHYROXINE SODIUM 88 MCG TAB PO SCH (06:00)
[2018-10-11] MEDS: FUROSEMIDE INJ 10 MG/ML 4 ML VIAL IV SCH ×2 (06:10→18:00)
[2018-10-11 06:11] LABS: INR 1.1; PROTHROMBIN TIME 15.2 seconds (11.9-14.5)
[2018-10-11 06:20] LABS: ALBUMIN 2.6 g/dL (3.5-5.0); ALBUMIN/GLOBULIN RATIO 0.9 (0.8-2.0); ANION GAP 15.4 mmol/L (8-16); CALCIUM 8.3 mg/dL (8.4-10.2); CREATININE, SERUM 1.54 mg/dL (0.72-1.25); POTASSIUM 4.4 mmol/L (3.5-5.1)
--- NOTE | 2018-10-11 06:29 | NUR ---
spoke with Dr. Claudio regarding critical h/h. new orders for blood transfusions x2. will enter and implement. ordered to page cardio to inform that aspirin has been stopped by dr. claudio yesterday.
[2018-10-11] MEDS: POTASSIUM CHLORIDE 20 MEQ TAB CR PO SCH ×2 (09:00→20:36)
[2018-10-11] MEDS: BALSAM PERU/CASTOR OIL 60 GM OINT...G. TP SCH (09:00)
[2018-10-11] MEDS: CHOLECALCIFEROL 1,000 UNIT TAB PO SCH (09:00)
[2018-10-11] MEDS: ALLOPURINOL 100 MG TAB PO SCH (09:00)
[2018-10-11] MEDS: FINASTERIDE 5 MG TAB PO SCH (09:00)
[2018-10-11] MEDS: PREGABALIN 50 MG CAP PO SCH ×2 (09:00→20:36)
--- NOTE | 2018-10-11 09:05 | NUR ---
REQUESTED TO SEE [employer] SALES REPRESENTATIVE, EXPLAINED WANTS TO TRANSFER TO [facility] WHERE HE CAME FROM AND WHERE ALL HIS DR ARE. SPOKE WITH NURSE AND THEY STATES THEY ARE IN PROCESS OF GETTING THIS STARTED. EDUCATED ABOUT IMM, SIGNED, FILED IN CHART, WITH COPY LEFT WITH FAMILY AT BEDSIDE.
--- NOTE | 2018-10-11 09:19 | Diagnostic Imaging Report ---
EXAMINATION: CHEST 2 VIEWS INDICATION: CHF. COMPARISON: Chest radiograph 10/11/2018. FINDINGS: TUBES and LINES: None. LUNGS: There is central vascular congestion without evidence of pulmonary edema. Improved patchy bibasilar opacities. There are residual opacities at the left lung base. PLEURA: No pleural effusion or pneumothorax. HEART AND MEDIASTINUM: Mild enlargement of the cardiomediastinal silhouette. There are atherosclerotic calcifications of the aortic arch. BONES AND SOFT TISSUES: No acute osseous abnormality. Status post median sternotomy. UPPER ABDOMEN: No free air under the diaphragm. IMPRESSION: Cardiomegaly and central vascular congestion without evidence of pulmonary edema. Patchy bibasilar opacities, decreased from the prior study with residual left retrocardiac opacity, likely atelectasis. Signed by: Dr. Dary Lockett MD on 10/11/2018 9:16 AM
--- NOTE | 2018-10-11 10:22 | NUR ---
TELEPHONED MD Marixa DIA PER MD DAVID REQUEST TO MAKE AWARE OF PT TRANSFERRING TO [facility], AWAITING CALL BACK
--- NOTE | 2018-10-11 11:00 | NUR ---
SPOKE WITH MD Marixa DIA, MADE AWARE THAT PT HAS ORDERS TO TRANSFER TO [facility],
[2018-10-11] MEDS: CEFEPIME 1GM/NS 0.9% 50 ML 50 ML IV SCH (12:00)
--- NOTE | 2018-10-11 12:20 | NUR ---
PT BACK IN ROOM, LUNCH TRAY SET UP. CALL LIGHT WITHIN REACH.
[2018-10-11] MEDS: PANTOPRAZOLE 40 MG 10ML VIAL IV SCH ×2 (12:54→20:36)
--- NOTE | 2018-10-11 12:54 | NUR ---
Spoke with pt regarding order to transfer to [facility]. Pt agreeable with plan. Spoke to MD this morning. Choice letter signed and placed in chart. Copy to pt. CM called [facility] and spoke with Ella and initiated the transfer. Clinicals were faxed. [address] [address] - phone [phone] - fax MOT initiated and placed at nurse's station with packet.
--- NOTE | 2018-10-11 13:45 | NUR ---
NEW IV ADMINISTERED BY CHARGE NURSE AT THIS TIME, 20G TO R HAND. LINE IS PATENT, NO REDNESS OR SWELLING TO INSERTION SITE OBSERVED.
[2018-10-11] MEDS: VANCOMYCIN 1GM/NS 250 ML 250 ML IV SCH (14:00)
[2018-10-11] MEDS ORDERED: SODIUM CHLORIDE 0.9% 250ML 250 ML ONE ×2 (14:18→16:38)
--- NOTE | 2018-10-11 16:39 | Progress Note ---
DATE: October 11, 2018 CARDIOLOGY PROGRESS NOTE SUBJECTIVE: Had more GI bleeding yesterday. Hemoglobin dropped this morning to less than 7. Undergoing blood transfusion today. OBJECTIVE VITAL SIGNS: Temperature afebrile. Pulse 76, respiratory rate 20, blood pressure 149/67, satting 99% on room air. GENERAL: Elderly man in no acute distress. CARDIOVASCULAR: Regular rate and rhythm. A 2/6 systolic murmur at right upper sternal border, mechanical S2. LUNGS: Clear to auscultation. ABDOMEN: Obese, soft, nontender, nondistended. NEURO AND PSYCH: Alert and oriented to person, place and time. Normal affect. INPATIENT MEDICATIONS: Reviewed. LABORATORY DATA: Reviewed. Hemoglobin dropped to 6.9 today. IMAGING DATA: Reviewed. TELEMETRY DATA: Reviewed. Rare PVCs. ASSESSMENT 1. Anemia secondary to acute occult gastrointestinal bleeding. 2. Chronic atrial fibrillation. 3. Mechanical aortic valve replacement on Coumadin. 4. Impaired right ventricular function. 5. Chronic kidney disease. 6. Hyperlipidemia. 7. Hypothyroidism. PLAN: Patient's hemoglobin continues to drop despite nonrevealing EGD and colonoscopy. Patient needs push enteroscopy and for this he will be transferred to another hospital for higher level of care. Recommend resuming his warfarin as soon as possible with a heparin bridge once acceptable from a bleeding standpoint as the patient has a mechanical aortic valve. Under no circumstances should the patient be discharged home without anticoagulation. Thank you for this consult. We will continue to follow. Job#: [id number]
--- NOTE | 2018-10-11 17:37 | Diagnostic Imaging Report ---
FLUOROSCOPIC SMALL BOWEL SERIES PRODUCTION CONTROL PLANNER(S): Dary Lockett MD Indication: Anemia. Comparison: None. Radiation Dose: Total dose: 15.3 mGy Total fluoroscopy time: 0.2 minutes Procedure: Small bowel follow through exam was performed using oral barium. Preliminary image was obtained before administration of contrast and serial overhead images were obtained after administration of oral barium. Fluoroscopy was performed and spot images were obtained. DISCUSSION: SKIVER COUNTER: The bowel gas pattern is non-obstructive. No acute bony abnormality. Partially seen findings status post right total hip arthroplasty. Surgical clips project over the pelvis. STOMACH: Unremarkable mucosal pattern. SMALL BOWEL: Bulb and sweep are normal. Duodenal-jejunal junction is unremarkable. Small bowel loops are normal in caliber and distribution. There is no evidence of fistula, mucosal changes, stricture or dilation. The transit time was within normal limits. Spot image of the terminal ileum was unremarkable. COLON: The partially visualized cecum appears unremarkable. IMPRESSION: Unremarkable fluoroscopic small bowel series. Signed by: Dr. Dary Lockett MD on 10/11/2018 5:34 PM
[2018-10-11] MEDS: FUROSEMIDE INJ 10 MG/ML 2 ML VIAL IV PRN ×2 (17:39→18:08)
--- NOTE | 2018-10-11 19:24 | NUR ---
WALKING ROUNDS PERFORMED, RECEIVED PT SITTING IN WHEELCHAIR, AAOX3, RR EVEN AND NON-LABORED, O2 BY NC AT 2L. NO S/SX OF DISTRESS NOTED. LEFT PT SITTING IN CHAIR CALL LIGHT AND PHONE WITHIN REACH.
--- NOTE | 2018-10-11 20:10 | NUR ---
SPOKE WITH MD DAVID CONCERNING PT TRANSFUSED 1 UNIT OF BLOOD WITH ORDER TO TRANSFUSE 2. OK TO TRANSFER PT WITH ONLY RECEIVING 1 UNIT OF BLOOD, DO NOT TRANSFUSE SECOND UNIT.
--- NOTE | 2018-10-11 20:27 | NUR ---
REPORT CALLED TO BRENNEN OLIVO FOR PT TRANSFERRING TO ROOM 922 AT [facility].
[2018-10-11] MEDS: ATORVASTATIN 20 MG TAB PO SCH (20:36)
[2018-10-11] MEDS: TAMSULOSIN HCL 0.4 MG CAP PO SCH (20:36)
--- NOTE | 2018-10-16 22:20 | NUR ---
Dictated DC summary: [id number]
--- NOTE | 2018-10-17 22:54 | Discharge Summary ---
ADMIT DIAGNOSES: 1. Lulti-ww-wysksxi anemia secondary to upper gastrointestinal bleed. 2. Chronic atrial fibrillation. 3. History of mechanical aortic valve replacement. 4. Remote history of peptic ulcer disease. 5. Stage 3 chronic kidney disease. 6. Chronic diastolic congestive heart failure. DISCHARGE DIAGNOSES: 1. Status post EGD. 2. Status post colonoscopy. 3. Status post transfusion of multiple units of packed red blood cells (8 during this hospitalization). 4. History of mechanical aortic valve replacement. 5. Chronic atrial fibrillation. 6. Chronic diastolic congestive heart failure. 7. Stage 3 chronic kidney disease. 8. Acute anemia secondary to upper gastrointestinal bleed (unknown etiology). HOSPITAL COURSE: This is an 88-year-old white man, who was admitted to [facility] with a diagnoses of profound anemia that was felt to be secondary to upper gastrointestinal bleeding melena. On admission, hemoglobin was 5.8 During this hospitalization, the patient was transfused a total of 8 units of packed red cells as well as one jumbo pack of fresh frozen plasma. The patient was on warfarin therapy on admission because he has a history of chronic atrial fibrillation as well as history of mechanical aortic valve replacement. The patient was never found to be in the warfarin toxicity range. In fact, his INR never went above 2.54 during his hospital stay. Warfarin therapy as well as aspirin was held since the patient had recurrent upper gastrointestinal bleeding. The upper and lower endoscopy did not reveal any obvious source of bleeding. The patient also underwent a tagged red cell scan as well as small bowel series and nothing was able to reveal the source of bleeding. The car record clerk recommended the patient undergo capsule endoscopy. Since this is a test that cannot be performed at [facility], the decision was made to transfer the patient to a facility that can accommodate this test. The patient requested transfer to [facility] in the [facility]. The patient's condition on transfer was stable with an overall fair prognosis. DISCHARGE MEDICATIONS: 1. Tamsulosin 0.4 mg every night. 2. Atorvastatin every night. 3. Pregabalin 50 mg b.i.d. 4. 20 mEq b.i.d. 5. Pantoprazole 40 mg intravenous 6. Cefepime 1 g intravenous 7. Guaifenesin with codeine 2 teaspoons every 6 hours p.r.n. cough. 8. Levothyroxine 88 mcg daily. 9. Finasteride 5 mg daily. 10. Cholecalciferol 1000 units daily. 11. Allopurinol 100 mg daily. FOLLOWUP INSTRUCTIONS: As previously stated, the patient was transferred to [facility] in [facility], where at this facility he would likely undergo capsule endoscopy to elucidate the exact etiology of his upper gastrointestinal bleeding. MD JIMBO Diaz/JOSELUIS /[id number]
== END 2018-10-11 22:51 | disposition short-term general hospital (02) | DRG 377 ==
LOC: ER 14:10 → ERHOLD 17:15 → MED/SURG 20:14
PROVIDERS: ADMIT Internal Medicine; ATTEND Internal Medicine
PROC: 30233N1 Transfusion of Nonautologous Red Blood Cells into Peripheral Vein, Percutaneous Approach (ICD-10-PCS; 2018-10-04)
PROC: 30233K1 Transfusion of Nonautologous Frozen Plasma into Peripheral Vein, Percutaneous Approach (ICD-10-PCS; 2018-10-07)
PROC: 0DB78ZX Excision of Stomach, Pylorus, Via Natural or Artificial Opening Endoscopic, Diagnostic (ICD-10-PCS; 2018-10-08)
PROC: 0D5H8ZZ Destruction of Cecum, Via Natural or Artificial Opening Endoscopic (ICD-10-PCS; 2018-10-08)
PROC: 0DBP8ZX Excision of Rectum, Via Natural or Artificial Opening Endoscopic, Diagnostic (ICD-10-PCS; principal; 2018-10-08 13:09)
PROC: 0W3P8ZZ Control Bleeding in Gastrointestinal Tract, Via Natural or Artificial Opening Endoscopic (ICD-10-PCS; 2018-10-08 13:09)
DX: K92.2 Gastrointestinal hemorrhage, unspecified (principal); I50.33 Acute on chronic diastolic (congestive) heart failure; D62 Acute posthemorrhagic anemia; N17.9 Acute kidney failure, unspecified; I13.0 Hypertensive heart and chronic kidney disease with heart failure and stage 1 through stage 4 chronic kidney disease, or unspecified chronic kidney disease; D12.8 Benign neoplasm of rectum; I48.2 Chronic atrial fibrillation; Z79.01 Long term (current) use of anticoagulants; Z95.2 Presence of prosthetic heart valve; N18.3 Chronic kidney disease, stage 3 (moderate); E03.9 Hypothyroidism, unspecified; J33.8 Other polyp of sinus; E78.5 Hyperlipidemia, unspecified; I51.7 Cardiomegaly; K57.90 Diverticulosis of intestine, part unspecified, without perforation or abscess without bleeding; K64.8 Other hemorrhoids; K20.9 Esophagitis, unspecified; K29.70 Gastritis, unspecified, without bleeding; E87.6 Hypokalemia
CPT/HCPCS: 36415; 43239; 45385; 71045; 71046; 71250; 74250; 78278; 80053; 80202; 81001; 82270; 82550; 82553; 83735; 83880; 84484; 85025; 85610; 85730; 86850; 86900; 86920; 87086; 88305; 88312; 93005; 93306; 97139; 99284; A9512; J0692; J1610; J1644; J1940; J2001; J3370; J3480; J7050; P9016; P9017